=== PATIENT | female | born 1985 | race Caucasian/White ===

== ENCOUNTER 2018-12-05 12:19 | Day surgery (SDC) | payer OTHER, SELFPAY ==
--- NOTE | 2018-12-05 | PATH_ITS ---
[facility] Accession Number: [id number] . 01 Material submitted: . PART A: small bowel - TERMINAL ILEUM PART B: colon - CECUM, RIGHT COLON PART C: colon - TRANSVERSE COLON POLYP PART D: colon - LEFT COLON . 01 Clinical history: . A: HISTORY OF CROHN'S, RULE OUT ILEITIS . 02 Diagnosis: A. Terminal Ileum, Biopsy: Ileal mucosa with no diagnostic abnormality. Negative for active inflammation, granulomata, dysplasia or malignancy. . B. / D. Cecum, Right Colon, Left Colon, Biopsies: Colonic mucosa with no significant diagnostic abnormality. Negative for active inflammation, granulomata, dysplasia or malignancy. . C. Transverse Colon, Polyp: Tubular adenoma. . [facility] 12/07/2018 1053 Local . 02 Electronically signed: . Tk Gonzalez MD, PhD, Pathologist NPI- [id number] . 01 Gross description: . Part A: TERMINAL ILEUM: Received in formalin are 2 fragment(s) of mercedes, soft tissue measuring 0.1 x 0.1 x 0.1 cm to 0.2 x 0.2 x 0.2 cm submitted entirely in 1 cassette(s) Part B: CECUM, RIGHT COLON: Received in formalin are multiple fragment(s) of mercedes, soft tissue measuring 0.1 x 0.1 x 0.1 cm to 0.3 x 0.3 x 0.2 cm submitted entirely in 1 cassette(s) Part C: TRANSVERSE COLON POLYP: Received in formalin is 1 fragment(s) of mercedes, soft tissue measuring 0.3 x 0.2 x 0.2 cm submitted entirely in 1 cassette(s) Part D: LEFT COLON: Received in formalin are multiple fragment(s) of mercedes, soft tissue measuring 0.2 x 0.2 x 0.2 cm to 0.3 x 0.2 x 0.2 cm submitted entirely in 1 cassette(s) /[facility] 12/06/2018 [facility] . 02 Pathologist provided ICD-10: K50.00, D12.3 . 02 CPT . 733565, 554738, 737533, 843937 [facility]formed at: [facility] [address] [address], [place], [place] [id number] MD Jesus Manuel Lawrence MD Phone: [phone] Performed at: [id number] [place], [place] [id number] MD Cristine Waters MD Phone: [phone]
[2018-12-05 13:00] VITALS: BP 143/91; PULSE 100; RESP 18; TEMP 36.6; O2SAT 98
[2018-12-05 13:06] VITALS: BMI 42.5
--- NOTE | 2018-12-05 14:37 | PM.HP.1 ---
History of Present Illness History of Present Illness Chief complaint: [id number] Patient History Family & Social History Social History: household members spouse Tobacco & Substance use: Smoking Status Never smoker Meds Home Medications and Allergies Home Medications Medication Instructions Recorded Confirmed Type citalopram 40 mg tablet 40 mg PO DAILY #90 tab 08/13/18 11/16/18 History hydroxyzine HCl 25 mg tablet 25 mg PO QID PRN #20 tab 08/13/18 11/16/18 Rx levothyroxine 75 mcg tablet 75 mcg PO DAILY 08/13/18 11/16/18 History lisinopril 10 mg tablet 10 mg PO DAILY 08/13/18 11/16/18 History nifedipine 30 mg tablet,extended 30 mg PO DAILY #90 tab 08/13/18 11/16/18 History release 24 hr Allergies Allergy/AdvReac Type Severity Reaction Status Date / Time No Known Drug Allergies Allergy Verified 11/16/18 15:34 Review of Systems Review of Systems ROS Unobtainable: All systems reviewed & are unremarkable except as noted in HPI and below Exam Vital Signs (past 8 hours): - 12/05/18 13:00 Temperature 97.9 F Pulse Rate 100 H Respiratory Rate 18 Blood Pressure 143/91 H Pulse Oximetry 98 Oxygen Delivery Method Room Air Narrative Exam Narrative: Awake alert and oriented x3, no acute distress, heart regular rate rhythm, lungs clear, abdomen mildly tender in the right lower quadrant, no lower extremity edema Assessment & Plan Assessment & Plan narrative: History of Crohn's, diarrhea for colonoscopy
--- NOTE | 2018-12-05 15:47 | PM.OP.ENDO ---
Operative Date/Time/Diagnoses Date of procedure: 12/05/18 Procedure & Clinicians Study performed: Colonoscopy with biopsy Sedation: Monitored anesthesia care provided by the anesthesia service Indications: Unexplained diarrhea. History of Crohn's ileitis. Last colonoscopy was performed in 2014 Procedure Notes Procedure in detail: Prior to the procedure, history and physical was performed, and patient medications and allergies were reviewed. Preprocedure nursing history and assessment was reviewed. Patient identification and proposed procedure were verified by the physician and nurse in the procedure room. The physical status of the patient was reassessed after the procedure. After informed consent was obtained including risks, benefits, and alternatives, the scope was passed under direct vision. Throughout the procedure, the patient's blood pressure, pulse, and oxygen saturations were monitored continuously. The colonoscope was introduced through the anus and advanced to the cecum as identified by the appendiceal orifice and ileocecal valve. The patient tolerated the procedure well. Bowel prep was deemed adequate to detect polyps greater than 5 mm. TANYA and perianal examinations were unremarkable. Retroflexion in the rectum was unrevealing. A 3 mm sessile polyp was removed from the transverse colon with a Jumbo biopsy forceps and retrieved The entire examined colon was otherwise normal appearing. Biopsies taken from the cecum, ascending, and right transverse colon and placed in one jar. Biopsies taken from the left transverse, descending and sigmoid colon and placed in a 2nd jar. The terminal ileum was normal appearing. Biopsied. Impression: 3 mm transverse colon polyp removed Normal appearing terminal ileum, biopsied Normal appearing entire colon, biopsied Complications: other (EBL minimal. No complications) Post-procedure Plan for aftercare: Follow-up pathology results Repeat colonoscopy at a date to be determined based on pathology results Follow-up in GI clinic as previously scheduled Resume home medications Resume previous diet Discharge home with escort when discharge criteria met
[2018-12-05 15:55] VITALS: BP 119/81; PULSE 86; RESP 16; TEMP 37.6; O2SAT 100
[2018-12-05 16:30] VITALS: BP 130/70; PULSE 77; RESP 16; TEMP 36.7; O2SAT 99
--- NOTE | 2018-12-05 16:56 | SUR.PHASEII ---
pt by passed phase 1, stable phase 2 left hen ready and left in stable condition.
== END 2018-12-05 16:50 | disposition home or self-care (01) ==
PROVIDERS: Visit Provider Internal Medicine
PROC: 0DJD8ZZ Inspection of Lower Intestinal Tract, Via Natural or Artificial Opening Endoscopic (ICD-10-PCS; CPT 45378; principal; 2018-12-05 14:30)
DX: K50.00 Crohn's disease of small intestine without complications (principal); D12.3 Benign neoplasm of transverse colon
CPT/HCPCS: 45380; J2250; J2704; J3010

== ENCOUNTER → 2019-06-21 10:29 | Outpatient (CLI) | payer OTHER, SELFPAY ==
[2019-06-21 13:35] LABS: GTT (PREG) 1 Hour PP 50gm Dose 191 mg/dL (76-139)
[2019-06-21 14:05] LABS: TSH w/ Reflex to FT4 1.96 uIU/mL (0.47-4.68)
== END ==
PROVIDERS: Referring Provider Obstetrics & Gynecology; Visit Provider Obstetrics & Gynecology
DX: Z34.90 Encounter for supervision of normal pregnancy, unspecified, unspecified trimester (principal); E03.9 Hypothyroidism, unspecified
CPT/HCPCS: 36415; 82950; 84443

== ENCOUNTER → 2019-06-27 10:14 | Outpatient (CLI) | payer OTHER, SELFPAY ==
[2019-06-27 12:29] LABS: Glucose 1 Hour Gest 201 mg/dL (76-180)
[2019-06-27 12:30] LABS: Glucose Fasting Gestational 101 mg/dL (76-95)
[2019-06-27 13:38] LABS: Glucose Tol Interp,Gestational INTERPRETATION
[2019-06-27 13:40] LABS: Glucose 2 Hour Gest 170 mg/dL (76-155)
[2019-06-27 15:35] LABS: Glucose 3 Hour Gest 75 mg/dL (76-140)
== END ==
PROVIDERS: PCP Nurse Practitioner Family; Referring Provider Obstetrics & Gynecology; Visit Provider Obstetrics & Gynecology
DX: Z34.82 Encounter for supervision of other normal pregnancy, second trimester (principal); Z3A.22 22 weeks gestation of pregnancy
CPT/HCPCS: 36415; 82951; 82952

== ENCOUNTER → 2019-07-10 12:00 | Outpatient (CLI) | payer OTHER, SELFPAY ==
[2019-07-10 12:56] LABS: Add Manual Diff / Slide Review NO; Basophils Absolute Auto 0 /uL (0-100); Basophils Percent Auto 0.1 % (0-2); Eosinophils Absolute Auto 100 /uL (0-450); Hematocrit 34.3 % (36-46); Hemoglobin 11.6 g/dL (12.0-16.0); Lymphocytes Absolute Auto 1800 /uL (1100-4500); Mean Corpuscular HGB Conc 33.7 % (30-36); Mean Corpuscular Hemoglobin 27.5 PG (26-34); Mean Corpuscular Volume 81.8 fL (80-100); Monocytes Absolute Auto 600 /uL (0-900); Monocytes Percent Auto 4.3 % (3-14); Neutrophils Absolute Auto 10400 /uL (1500-7000); Neutrophils Percent Auto 80.6 % (50-75); Platelet Count 254 X10^3/uL (150-400); Red Cell Distribution Width 14.3 % (11.6-14.8)
[2019-07-10 13:28] LABS: Aspartate Aminotransferase 18 IU/L (14-36); BUN Creatinine Ratio 14.1 (6-22); Blood Urea Nitrogen 9 mg/dL (7-17); Estimated Glomerular Filt Rate > 60.0 mL/min (>60); Uric Acid 4.8 mg/dL (2.5-6.2)
[2019-07-10 13:42] LABS: Free T4, Direct Thyroxine 0.64 ng/dL (0.78-2.19)
== END ==
PROVIDERS: PCP Nurse Practitioner Family; Referring Provider Obstetrics & Gynecology; Visit Provider Obstetrics & Gynecology
DX: O99.280 Endocrine, nutritional and metabolic diseases complicating pregnancy, unspecified trimester (principal); O16.9 Unspecified maternal hypertension, unspecified trimester; E03.9 Hypothyroidism, unspecified
CPT/HCPCS: 36415; 84439; 84443; 84450; 84550; 85025

== ENCOUNTER → 2019-07-23 13:25 | Outpatient (CLI) | payer OTHER, SELFPAY ==
--- NOTE | 2019-07-23 14:59 | DIET.PN ---
INITIAL GESTATIONAL DIABETES ASSESSMENT ASSESS:? This is patients 3rd , 1st with GDM. Believes to have had undiagnosed GDM during first 2 pregnancies. She has a hx of HTN pre-. She admits to heavy soda consumption (up 6 per day) prior to diagnosis. She reports she does not follow a specific meal plan and will often not eat until dinner. She does not get regular exercise, especially since Covid-19. She has made impressive changes in her dietary habits and glucose monitoring over the last several days. ? KIARA:?Oct 30, 2019 ? WKS GESTATION:??26 wks ?LABS: A1c: 5.9 OGTT 50g : 191 (1 hr) Pt presents w/ new labs FB, 1 hr: 201, 2 hr: 170, 3 hr: 75 SMB-138 ? MEDS: na ? DIET:? B: cereal or nothing L: turk sand, chips, sandwich D: pro, starch, veg Sn: soda ? HT:? 68 ? PRE-PREG WT:? 288# ? PRE-PREG BMI:??43.8 ? CURRENT WT : 291#? TOTAL WT GAIN:? 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 Altered nutrition related lab values r/t gestational diabetes as evidenced by recent labs (OGGT). INTERVENTION 1. Discussed pathophysiology of gestational diabetes and impact of hormone and nutrition/diet on blood sugar control.? Discussed fed versus non-fed state.? 2. Recommended checking fasting, pre-meal and 1hr post prandial (3x/day).? Discussed goals for glycemic control (<95 FBG, <140 1-hr PP).? 3. Discussed the effect of carbohydrates/protein/fat on blood sugar control.? Stressed importance of consistent carbohydrate intake at each meal and provided instructions for recommended servings/portions of carbohydrates/protein per meal.? Provided pt with educational material. 4. Introduced carbohydrate counting and measuring carbohydrate content via servings sizes and reading nutrition labels.? Provided handouts.? 5. Discussed importance of meal timing and not going >3 hours between meals.? Provided sample meal schedule for pt.? Pt agreeable.?? 6. Discussed importance a pre-rosalva vitamin and including food sources of calcium, vitamin D, iron and folic acid for baby and mother?s nutrition support. 7. Discussed caffeine intake. Recommend no more than 200 mg/day (1 cup coffee). 8. Discussed rule of 15 for hypoglycemia. 9. Recommend patient purchase Urine Ketone strips and instructed on use and when to contact provider. 10.Recommended patient continue exercise as appropriate per PCP approval. 11.Patient may need medication management, will follow-up with plan of care at next visit after reviewing glucose results.? Pt will call this RD immediately if >20% BG values outside of normal ranges. MONITOR/EVAL: Follow up scheduled X 1 week. Good compliance expected. Review: carb sources, carb counting, portion size, meal timing, BG log, weight.
== END ==
PROVIDERS: PCP Nurse Practitioner Family; Referring Provider Obstetrics & Gynecology; Visit Provider Obstetrics & Gynecology
DX: O24.419 Gestational diabetes mellitus in pregnancy, unspecified control (principal); Z3A.26 26 weeks gestation of pregnancy; Z71.3 Dietary counseling and surveillance
CPT/HCPCS: G0108

== ENCOUNTER 2019-08-26 14:36 | Observation (INO) | payer OTHER, MEDICAID, SELFPAY ==
--- NOTE | 2019-08-26 14:45 | DI.US.S_ITS ---
PROCEDURE: US OB BIOPHYSICAL PROFILE INDICATIONS: BLEEDING; CERVICAL LENGTH + BPP OUTSIDE/PRIOR DATING DATA: Last menstrual period (LMP): Not available. LMP-based estimated date of delivery (KIARA): Not available . First dating scan (date and location): Not available . Estimated date of delivery (KIARA) from first dating scan: Reportedly 10/22/19 . TECHNIQUE: Real-time scanning was performed of the fetus for biophysical profile, with image documentation. Color and pulse Doppler interrogation was also performed of the umbilical artery near its insertion into the placenta. Endovaginal scanning: Not needed COMPARISON: None. FINDINGS: General: A single living intrauterine gestation is present. Presentation: Vertex. Placenta: Placental position is anterior , without previa. Amniotic fluid index: 15.1 cm, normal range is 5-24 cm. heart rate: 144 beats per minute. Maternal cervical canal: 3.9 cm long. Normal lower limit is 2.5 cm. Biophysical profile: Tone: 2 points. Movement: 2 points. Respiration: 2 points. Largest pocket of fluid: 2 points. IMPRESSION: Biophysical profile is 8 of 8 possible points. Normal amniotic fluid volume. heart rate 144 beats per minute, vertex presentation. Dictated by: Palmer Cortes M.D. on 08/26/2019 at 15:58 Approved by: Palmer Cortes M.D. on 08/26/2019 at 16:00
--- NOTE | 2019-08-26 17:01 | P.HPOB_ITS ---
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 She reports brown to pink vaginal bleeding on wiping 4 days ago that only happened once, and that she had no cramping or other symptoms at that time. The bleeding returned last night, heavier and more bright red, and continues on wiping today. Despite her crohns history, the bleeding is not associated with bowel movements, and she has not been having intercourse or engaged in other unusual activity. She reports good movement, no LOF, and no PIH complaints. She has an anterior placenta without previa. On speculum exam in clinic, the bleeding is coming from the cervical os but not the surface of the cervix, and is as characterized above. The patient was sent to L&D for further evaluation, and discussed with Dr. Bernal of [facility] at [facility], who agreed that she was appropriate for transfer to [place] for inpatient monitoring in proximity to a NICU. History of Present care: good care (Transfer of care @17 weeks) Dating criteria: based on 1st trimester US only Ultrasounds: normal 1st trimester US and normal mid trimester US Obstetrical complications: gestational diabetes Medical complications: cardiovascular (chronic hypertension, depression, obesity, crohns disease) Preadmission Labs Blood type: B (-) negative (rhogam on 08/13/2019) -: Antibody screen: negative, Cystic fibrosis screen: negative, GBS status: unknown, HBsAG: negative, HIV: negative and RPR/VDLR: negative -: Chlamydia screen: not detected and Gonorrhea screen: not detected -: Rubella: immune and Varicella: immune Sequential screen: within normal limits Urine: urine culture negative Prior (ies) History: 10/22/15: C section, female, 39.1, 9#8 oz 11/14/16: repeat C Section, 39+0, 10#1 oz, male, [facility] Evaluation Evaluation Baseline heart rate: 140 Variability: Marked (>25) monitor accelerations: Present monitor decelerations: Absent Category of Tracing: I Cervical dilation (cm): 0 Cervical effacement (%): 0 station: -3 Comments: BPP 10/10, Vertex, RUBIA 15.1. No contractions on toco. [facility] Medical History Abnormal Pap smear of cervix (Acute) Eczema of both hands (Acute) Migraine (Acute) Obesity (Acute) Surgical History H/O colonoscopy (Acute ~2012) H/O colonoscopy with polypectomy (Acute ~2018) H/O LEEP (Acute) History of carpal tunnel release (Acute ~10/18/18) History of primary section (Acute ~10/22/15) History of tonsillectomy and adenoidectomy (Acute ~2005) S/P ankle ligament repair (Acute ~2006) S/P repeat low transverse (Acute ~11/14/16) [place] teeth removed (Acute ~2005) Family History Mother Preeclampsia Graves disease Father Hypertension SVT (supraventricular tachycardia) Anxiety Grandfather Unknown whether patient has any health problems Grandmother Unknown whether patient has any health problems Grandfather Cancer Brain tumor Grandmother No problems noted. 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: No Smoking Status: Never smoker second hand exposure: No alcohol intake: never substance use type: does not use Meds Home Medications and Allergies Home Medications Medication Instructions Recorded Confirmed Type aspirin 81 mg tablet,delayed 81 mg PO DAILY 05/15/19 08/26/19 History release prenat.vits,maria e,ils-hepd-ifuea 1 tab PO DAILY 05/15/19 08/26/19 History sertraline 50 mg tablet 50 mg PO DAILY 05/15/19 08/26/19 History labetalol 300 mg tablet 300 mg PO BID #60 tab 05/29/19 08/26/19 Rx blood sugar diagnostic #120 each 07/17/19 08/26/19 Rx blood-glucose meter #1 each 07/17/19 08/26/19 Rx lancets #120 each 07/17/19 08/26/19 Rx levothyroxine 100 mcg capsule 100 mcg PO DAILY #30 cap 07/17/19 08/26/19 Rx insulin NPH isoph U-100 human 12 unit SUBCUT BEDTIME 08/26/19 08/26/19 History [Humulin N NPH Insulin KwikPen] insulin lispro 4 unit SUBCUT BID 08/26/19 08/26/19 History Allergies Allergy/AdvReac Type Severity Reaction Status Date / Time No Known Drug Allergies Allergy Verified 05/15/19 10:26 Review of Systems Constitutional Constitutional: Reports system reviewed and no additional complaints, except as documented Cardiovascular Cardiovascular: Reports system reviewed and no additional complaints, except as documented Respiratory Respiratory: Reports system reviewed and no additional complaints, except as documented Gastrointestinal Gastrointestinal: Reports system reviewed and no additional complaints, except as documented Genitourinary Genitourinary: Reports as per HPI Musculoskeletal Musculoskeletal: Reports system reviewed and no additional complaints, except as documented Neurologic Neurologic: Reports system reviewed and no additional complaints, except as documented Psychiatric Psychiatric: Reports system reviewed and no additional complaints, except as documented Hematologic/Lymphatic Hematologic/Lymphatic: Reports system reviewed and no additional complaints, except as documented Exam Vital Signs (past 8 hours): 129-145/69-72, HR 80s Const General: cooperative, healthy appearing and comfortable GI Inspection: large pannus and obesity Palpation: soft and No tender External Female Exam: normal external appearance Speculum Exam - Vagina: no lacerations, no lesions and vaginal bleeding Speculum Exam - Cervix: normal appearance of the cervix, closed and no lesions OB/External & Speculum: vaginal bleeding Extrem General: normal to inspection Assessment and Plan Assessment and Plan Assessment and Plan narrative: This patient is a 34yo @31+6 with cHTN, GDMA2, crohns dz, depression, and a history of two prior CS, admitted with concern for placental abruption. Maternal and status are stable, but the patient is having uterine bleeding concerning for placental abruption. Her cervix is long and closed and she is not indira, making labor less likely, and she is known not to have a placenta previa or low lying placenta. This was explained to the patient, who will be transferred to [facility] for both access to a NICU and to her [facility] providers. The above was explained to the patient, along with risks and benefits of transfer. All questions were answered. - 12mg IM betamethasone now - KB stain, CBC, T&S pending - NPO, 125ccs/hr LR - cEFM, toco until transfer
[2019-08-26 18:19] LABS: Add Manual Diff / Slide Review NO; Basophils Absolute Auto 100 /uL (0-100); Basophils Percent Auto 0.8 % (0-2); Eosinophils Absolute Auto 100 /uL (0-450); Eosinophils Percent Auto 0.7 % (2-4); Hematocrit 36.1 % (36-46); Lymphocytes Absolute Auto 2100 /uL (1100-4500); Lymphocytes Percent Auto 14.1 % (25-40); Mean Corpuscular HGB Conc 33.3 % (30-36); Mean Corpuscular Hemoglobin 27.5 PG (26-34); Mean Corpuscular Volume 82.6 fL (80-100); Monocytes Absolute Auto 500 /uL (0-900); Monocytes Percent Auto 3.6 % (3-14); Neutrophils Absolute Auto 11900 /uL (1500-7000); Neutrophils Percent Auto 80.8 % (50-75); Platelet Count 256 X10^3/uL (150-400); Red Blood Cell Count 4.37 X10^6/uL (4.0-5.2); Red Cell Distribution Width 14.8 % (11.6-14.8); White Blood Cell Count 14.7 X10^3/uL (4.5-11.0)
[2019-08-26] MEDS: LACTATED RINGERS 1,000 ML 125 ML IV (18:30)
[2019-08-26] MEDS: BETAMETHASONE 30 MG/5 ML MDV 12 MG IM (18:47)
== END 2019-08-26 19:40 | disposition home or self-care (01) ==
PROVIDERS: Admitting Provider Obstetrics & Gynecology; PCP Nurse Practitioner Family; Referring Provider Obstetrics & Gynecology; Visit Provider Obstetrics & Gynecology
DX: O46.93 Antepartum hemorrhage, unspecified, third trimester (principal); O10.913 Unspecified pre-existing hypertension complicating pregnancy, third trimester; Z3A.31 31 weeks gestation of pregnancy; O99.213 Obesity complicating pregnancy, third trimester; E66.01 Morbid (severe) obesity due to excess calories; O24.414 Gestational diabetes mellitus in pregnancy, insulin controlled; O99.343 Other mental disorders complicating pregnancy, third trimester; O99.613 Diseases of the digestive system complicating pregnancy, third trimester; F32.9 Major depressive disorder, single episode, unspecified; K50.90 Crohn's disease, unspecified, without complications
CPT/HCPCS: 59025; 59050; 76815; 76819; 85025; 85460; 86850; 86870; 86900; 86901; 96360; 96372; G0378; G0379; J0702

== ENCOUNTER 2019-09-05 10:03 | Outpatient (CLI) | payer OTHER, MEDICAID, SELFPAY ==
--- NOTE | 2019-09-05 10:22 | P.TNLD_ITS ---
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 Vital Signs Vital Signs: 124/71, HR 87 PFSH Medical History Abnormal Pap smear of cervix (Acute) Eczema of both hands (Acute) Migraine (Acute) Obesity (Acute) Surgical History H/O colonoscopy (Acute ~2012) H/O colonoscopy with polypectomy (Acute ~2018) H/O LEEP (Acute) History of carpal tunnel release (Acute ~10/18/18) History of primary section (Acute ~10/22/15) History of tonsillectomy and adenoidectomy (Acute ~2005) S/P ankle ligament repair (Acute ~2006) S/P repeat low transverse (Acute ~11/14/16) [place] teeth removed (Acute ~2005) Family History Mother Preeclampsia Graves disease Father Hypertension SVT (supraventricular tachycardia) Anxiety Grandfather Unknown whether patient has any health problems Grandmother Unknown whether patient has any health problems Grandfather Cancer Brain tumor Grandmother No problems noted. 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 OB Disposition: home
== END 2019-09-05 10:30 | disposition home or self-care (01) ==
LOC: LABOR 10:24 → OB 14:44
PROVIDERS: PCP Nurse Practitioner Family; Referring Provider Obstetrics & Gynecology; Visit Provider Obstetrics & Gynecology
DX: O24.419 Gestational diabetes mellitus in pregnancy, unspecified control (principal); O99.283 Endocrine, nutritional and metabolic diseases complicating pregnancy, third trimester; Z3A.33 33 weeks gestation of pregnancy
CPT/HCPCS: 59025; G0378; G0379

== ENCOUNTER 2019-09-09 10:40 | Outpatient (CLI) | payer OTHER, MEDICAID, SELFPAY ==
--- NOTE | 2019-09-11 08:29 | P.TNLD_ITS ---
Visit Information Visit Information Date of evaluation: 09/09/19 Primary OB Provider: Bree Viveros On-call OB Provider: Annamarie Bustos Reason for Evaluation: Yes non-stress test non-stress test reason: diabetes PFSH Medical History Abnormal Pap smear of cervix (Acute) Eczema of both hands (Acute) Migraine (Acute) Obesity (Acute) Surgical History H/O colonoscopy (Acute ~2012) H/O colonoscopy with polypectomy (Acute ~2018) H/O LEEP (Acute) History of carpal tunnel release (Acute ~10/18/18) History of primary section (Acute ~10/22/15) History of tonsillectomy and adenoidectomy (Acute ~2005) S/P ankle ligament repair (Acute ~2006) S/P repeat low transverse (Acute ~11/14/16) [place] teeth removed (Acute ~2005) Family History Mother Preeclampsia Graves disease Father Hypertension SVT (supraventricular tachycardia) Anxiety Grandfather Unknown whether patient has any health problems Grandmother Unknown whether patient has any health problems Grandfather Cancer Brain tumor Grandmother No problems noted. 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
== END 2019-09-09 11:28 | disposition home or self-care (01) ==
LOC: LABOR 11:28 → OB 15:38
PROVIDERS: PCP Nurse Practitioner Family; Referring Provider Obstetrics & Gynecology; Visit Provider Obstetrics & Gynecology
DX: O24.419 Gestational diabetes mellitus in pregnancy, unspecified control (principal); O10.913 Unspecified pre-existing hypertension complicating pregnancy, third trimester; O99.283 Endocrine, nutritional and metabolic diseases complicating pregnancy, third trimester; E07.9 Disorder of thyroid, unspecified; Z3A.33 33 weeks gestation of pregnancy
CPT/HCPCS: 59025; G0378; G0379

== ENCOUNTER 2019-09-12 11:13 | Observation (INO) | payer OTHER, MEDICAID, SELFPAY ==
--- NOTE | 2019-09-12 12:10 | DI.US.S_ITS ---
PROCEDURE: US OB BIOPHYSICAL PROFILE INDICATIONS: WELL BEING OUTSIDE/PRIOR DATING DATA: Last menstrual period (LMP): Unknown. LMP-based estimated date of delivery (KIARA): Unknown. First dating scan (date and location): Date unknown, location [facility]. Estimated date of delivery (KIARA) from first dating scan: 10/22/19. TECHNIQUE: Real-time scanning was performed of the fetus for biophysical profile, with image documentation. Color and pulse Doppler interrogation was also performed of the umbilical artery near its insertion into the placenta. COMPARISON: [facility], , US OB >= 14 WEEKS FETUS, 09/12/2019, 10:56. [facility], , OB BIOPHYSICAL PROFILE, 08/26/2019, 14:58. FINDINGS: General: A single living intrauterine gestation is present. Presentation: Vertex. Placenta: Placental position is anterior and fundal , without previa. Amniotic fluid index: 11.4 cm, normal range is 5-24 cm. heart rate: 150 beats per minute. Maternal cervical canal: 4.6 cm long. Normal lower limit is 2.5 cm. Estimated gestational age from initial scan: 34 weeks 2 days . Biophysical profile: Tone: 2 points. Movement: 2 points. Respiration: 2 points. Largest pocket of fluid: 2 points. IMPRESSION: Living 3rd trimester intrauterine . Normal ultrasound biophysical profile measuring 09/13. Dictated by: Vivek Esteban M.D. on 09/12/2019 at 13:20 Approved by: Vivek Esteban M.D. on 09/12/2019 at 13:25
[2019-09-12] MEDS: LACTATED RINGERS 1,000 ML 1000 ML IV (12:30)
--- NOTE | 2019-09-12 13:42 | PM.OBHP.1 ---
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 She reports that she felt a little bit of movement yesterday and a little bit this morning, but significantly decreased from her baseline. She denies abdominal pain, vaginal bleeding, contractions, LOF, PIH symptoms, or any other complaints. She has been followed by MFM at [facility] throughout this . She had been on ASA81 prior to the abruption event for PIH prophylaxis. She has signed consents here and at [facility] for a BLTL. Evaluation Evaluation Baseline heart rate: 160 Variability: Average (6-10) monitor accelerations: Absent monitor decelerations: Absent Laboratory results: Pending [facility] Medical History Abnormal Pap smear of cervix (Acute) Eczema of both hands (Acute) Migraine (Acute) Obesity (Acute) Surgical History H/O colonoscopy (Acute ~2012) H/O colonoscopy with polypectomy (Acute ~2018) H/O LEEP (Acute) History of carpal tunnel release (Acute ~10/18/18) History of primary section (Acute ~10/22/15) History of tonsillectomy and adenoidectomy (Acute ~2005) S/P ankle ligament repair (Acute ~2006) S/P repeat low transverse (Acute ~11/14/16) [place] teeth removed (Acute ~2005) Family History Mother Preeclampsia Graves disease Father Hypertension SVT (supraventricular tachycardia) Anxiety Grandfather Unknown whether patient has any health problems Grandmother Unknown whether patient has any health problems Grandfather Cancer Brain tumor Grandmother No problems noted. 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 needs: No Smoking Status: Never smoker second hand exposure: No alcohol intake: never substance use type: does not use Meds Home Medications and Allergies Home Medications Medication Instructions Recorded Confirmed Type aspirin 81 mg tablet,delayed 81 mg PO DAILY 05/15/19 08/26/19 History release prenat.vits,maria e,yaj-ykbo-tmlrb 1 tab PO DAILY 05/15/19 08/26/19 History sertraline 50 mg tablet 50 mg PO DAILY 05/15/19 08/26/19 History labetalol 300 mg tablet 300 mg PO BID #60 tab 05/29/19 08/26/19 Rx blood sugar diagnostic #120 each 07/17/19 08/26/19 Rx blood-glucose meter #1 each 07/17/19 08/26/19 Rx lancets #120 each 07/17/19 08/26/19 Rx levothyroxine 100 mcg capsule 100 mcg PO DAILY #30 cap 07/17/19 08/26/19 Rx insulin NPH isoph U-100 human 12 unit SUBCUT BEDTIME 08/26/19 08/26/19 History [Humulin N NPH Insulin KwikPen] insulin lispro 4 unit SUBCUT BID 08/26/19 08/26/19 History Allergies Allergy/AdvReac Type Severity Reaction Status Date / Time No Known Drug Allergies Allergy Verified 05/15/19 10:26 Review of Systems Constitutional Constitutional: Reports system reviewed and no additional complaints, except as documented Cardiovascular Cardiovascular: Reports system reviewed and no additional complaints, except as documented Respiratory Respiratory: Reports system reviewed and no additional complaints, except as documented Gastrointestinal Gastrointestinal: Reports as per HPI Genitourinary Genitourinary: Reports as per HPI Musculoskeletal Musculoskeletal: Reports system reviewed and no additional complaints, except as documented Neurologic Neurologic: Reports system reviewed and no additional complaints, except as documented Hematologic/Lymphatic Hematologic/Lymphatic: Reports system reviewed and no additional complaints, except as documented Exam Vital Signs (past 8 hours): 137/86, HR 89 Assessment and Plan Assessment and Plan Assessment and Plan narrative: This patient is a 34yo @34+2 with a history of placental abruption, cHTN, GDMA2, and 2x prior CS, admitted with decreased movement, a non-reactive NST, and concern for worsening placental abruption on ultrasound. The patient is asymptomatic with an 8/10 BPP, but given her clinical history, her prolonged monitoring is best performed at a site with a NICU. This was discussed with MFM at [facility], who are in agreement with this plan. Risks of worsening in route vs. benefits of NICU access were discussed with the patient, who vocalized understanding. - NPO - s/p IV fluid bolus, continue at 125ccs/hr - CBC and T&S pending - Formal BPP report pending Discussed with accepting transfer physician, Dr. Nascimento.
[2019-09-12 13:50] LABS: Add Manual Diff / Slide Review NO; Basophils Absolute Auto 100 /uL (0-100); Basophils Percent Auto 0.6 % (0-2); Eosinophils Absolute Auto 100 /uL (0-450); Eosinophils Percent Auto 0.8 % (2-4); Hematocrit 34.7 % (36-46); Hemoglobin 11.4 g/dL (12.0-16.0); Lymphocytes Absolute Auto 1700 /uL (1100-4500); Lymphocytes Percent Auto 12.8 % (25-40); Mean Corpuscular HGB Conc 32.8 % (30-36); Mean Corpuscular Hemoglobin 27.1 PG (26-34); Mean Corpuscular Volume 82.7 fL (80-100); Monocytes Absolute Auto 500 /uL (0-900); Monocytes Percent Auto 3.8 % (3-14); Neutrophils Absolute Auto 10700 /uL (1500-7000); Platelet Count 228 X10^3/uL (150-400); Red Blood Cell Count 4.19 X10^6/uL (4.0-5.2); Red Cell Distribution Width 14.9 % (11.6-14.8)
[2019-09-12] MEDS: LACTATED RINGERS 1,000 ML 150 ML IV (14:24)
== END 2019-09-12 15:40 | disposition home or self-care (01) ==
PROVIDERS: Admitting Provider Obstetrics & Gynecology; PCP Nurse Practitioner Family; Referring Provider Obstetrics & Gynecology; Visit Provider Obstetrics & Gynecology
DX: O45.93 Premature separation of placenta, unspecified, third trimester (principal); O36.8130 Decreased fetal movements, third trimester, not applicable or unspecified; Z3A.34 34 weeks gestation of pregnancy; O10.913 Unspecified pre-existing hypertension complicating pregnancy, third trimester; O24.414 Gestational diabetes mellitus in pregnancy, insulin controlled; E66.01 Morbid (severe) obesity due to excess calories; F32.9 Major depressive disorder, single episode, unspecified; O99.613 Diseases of the digestive system complicating pregnancy, third trimester
CPT/HCPCS: 36415; 59050; 76819; 85025; 86850; 86870; 86900; 86901; 96360; G0378; G0379

== ENCOUNTER 2019-09-16 11:04 | Outpatient (CLI) | payer OTHER, MEDICAID, SELFPAY ==
--- NOTE | 2019-09-16 11:38 | PM.OBTRLD ---
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 Patient was discharged from [facility] last night after prolonged observation with reassuring status. Patient reports was told she almost has HELLP or something, per records mild elevation in LFTs though not double upper limit of normal. PIH labs repeated today. Vital Signs Vital Signs: 127/66, HR 88 PFSH Medical History Abnormal Pap smear of cervix (Acute) Eczema of both hands (Acute) Migraine (Acute) Obesity (Acute) Surgical History H/O colonoscopy (Acute ~2012) H/O colonoscopy with polypectomy (Acute ~2018) H/O LEEP (Acute) History of carpal tunnel release (Acute ~10/18/18) History of primary section (Acute ~10/22/15) History of tonsillectomy and adenoidectomy (Acute ~2005) S/P ankle ligament repair (Acute ~2006) S/P repeat low transverse (Acute ~11/14/16) [place] teeth removed (Acute ~2005) Family History Mother Preeclampsia Graves disease Father Hypertension SVT (supraventricular tachycardia) Anxiety Grandfather Unknown whether patient has any health problems Grandmother Unknown whether patient has any health problems Grandfather Cancer Brain tumor Grandmother No problems noted. 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 Planned for CS at 37 weeks. OB Disposition: home
[2019-09-16 13:18] LABS: Alanine Aminotransferase 59 IU/L (<35); Albumin 3.7 g/dL (3.5-5.0); Albumin Globulin Ratio 1.1 (1.0-2.8); Alkaline Phosphatase 142 U/L (38-126); Aspartate Aminotransferase 39 IU/L (14-36); BUN Creatinine Ratio 19.7 (6-22); Bilirubin Total 0.4 mg/dL (0.2-1.3); Blood Urea Nitrogen 12 mg/dL (7-17); Calcium 9.6 mg/dL (8.4-10.2); Carbon Dioxide 22 mmol/L (22-32); Chloride 107 mmol/L (98-107); Estimated Glomerular Filt Rate > 60.0 mL/min (>60); Globulin 3.3 g/dL (1.7-4.1); Glucose 87 mg/dL (70-100); HEMOLYSIS 16 (0-50); Lactate Dehydrogenase 295 U/L (313-618); Potassium 4.5 mmol/L (3.4-5.1); Sodium 136 mmol/L (137-145); Uric Acid 4.5 mg/dL (2.5-6.2)
[2019-09-16 13:22] LABS: Add Manual Diff / Slide Review NO; Basophils Absolute Auto 0 /uL (0-100); Basophils Percent Auto 0.3 % (0-2); Eosinophils Absolute Auto 100 /uL (0-450); Eosinophils Percent Auto 0.7 % (2-4); Hematocrit 35.9 % (36-46); Hemoglobin 12.1 g/dL (12.0-16.0); Lymphocytes Absolute Auto 1600 /uL (1100-4500); Lymphocytes Percent Auto 10.8 % (25-40); Mean Corpuscular HGB Conc 33.7 % (30-36); Mean Corpuscular Hemoglobin 27.7 PG (26-34); Monocytes Absolute Auto 600 /uL (0-900); Monocytes Percent Auto 4.2 % (3-14); Neutrophils Absolute Auto 12100 /uL (1500-7000); Platelet Count 255 X10^3/uL (150-400); Red Blood Cell Count 4.38 X10^6/uL (4.0-5.2); Red Cell Distribution Width 14.9 % (11.6-14.8); White Blood Cell Count 14.4 X10^3/uL (4.5-11.0)
== END 2019-09-16 12:55 | disposition home or self-care (01) ==
LOC: LABOR 12:34 → OB 09-17 12:25
PROVIDERS: PCP Nurse Practitioner Family; Referring Provider Obstetrics & Gynecology; Visit Provider Obstetrics & Gynecology
DX: O24.414 Gestational diabetes mellitus in pregnancy, insulin controlled (principal); O10.913 Unspecified pre-existing hypertension complicating pregnancy, third trimester; O99.283 Endocrine, nutritional and metabolic diseases complicating pregnancy, third trimester; E07.9 Disorder of thyroid, unspecified; Z3A.34 34 weeks gestation of pregnancy
CPT/HCPCS: 59025; 59050; 80053; 83615; 84550; 85025; G0378; G0379

== ENCOUNTER 2019-09-19 11:22 | Observation (INO) | payer OTHER, MEDICAID, SELFPAY ==
--- NOTE | 2019-09-19 12:18 | P.TNLD_ITS ---
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 Patient reports mild headache that has been present since discharge from [place] is unchanged, no visual changes, no right upper quadrant pain, no other complaints obstetrical or otherwise today. [facility] Medical History Abnormal Pap smear of cervix (Acute) Eczema of both hands (Acute) Migraine (Acute) Obesity (Acute) Surgical History H/O colonoscopy (Acute ~2012) H/O colonoscopy with polypectomy (Acute ~2018) H/O LEEP (Acute) History of carpal tunnel release (Acute ~10/18/18) History of primary section (Acute ~10/22/15) History of tonsillectomy and adenoidectomy (Acute ~2005) S/P ankle ligament repair (Acute ~2006) S/P repeat low transverse (Acute ~11/14/16) [place] teeth removed (Acute ~2005) Family History Mother Preeclampsia Graves disease Father Hypertension SVT (supraventricular tachycardia) Anxiety Grandfather Unknown whether patient has any health problems Grandmother Unknown whether patient has any health problems Grandfather Cancer Brain tumor Grandmother No problems noted. 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 Smoking Status: Never smoker second hand exposure: No alcohol intake: never substance use type: does not use Review of Systems Constitutional Constitutional: Reports system reviewed and no additional complaints, except as documented Exam Vital Signs (past 8 hours): 134/63, hr 91 Const General: cooperative, healthy appearing and comfortable Objective Labs Result Diagrams: 09/19/19 12:31 09/19/19 12:31 Evaluation Evaluation Baseline heart rate: 145 Variability: Moderate (11-25) monitor accelerations: Present monitor decelerations: Absent Category of Tracing: Reactive (Category 1) Comments: PIH labs stable. Diagnosis, Plan/Disposition Plan/Disposition Plan: Home with routine precautions and scheduled follow-up. OB Disposition: home
[2019-09-19 12:42] LABS: Add Manual Diff / Slide Review NO; Basophils Absolute Auto 100 /uL (0-100); Basophils Percent Auto 0.6 % (0-2); Eosinophils Absolute Auto 100 /uL (0-450); Eosinophils Percent Auto 0.6 % (2-4); Hematocrit 32.7 % (36-46); Hemoglobin 11.1 g/dL (12.0-16.0); Lymphocytes Absolute Auto 900 /uL (1100-4500); Lymphocytes Percent Auto 9.7 % (25-40); Mean Corpuscular HGB Conc 34.1 % (30-36); Mean Corpuscular Hemoglobin 28.1 PG (26-34); Mean Corpuscular Volume 82.6 fL (80-100); Monocytes Absolute Auto 400 /uL (0-900); Monocytes Percent Auto 4.5 % (3-14); Neutrophils Absolute Auto 7600 /uL (1500-7000); Neutrophils Percent Auto 84.6 % (50-75); Platelet Count 196 X10^3/uL (150-400); Red Blood Cell Count 3.96 X10^6/uL (4.0-5.2); Red Cell Distribution Width 14.7 % (11.6-14.8)
[2019-09-19 12:54] LABS: Alanine Aminotransferase 63 IU/L (<35); Albumin 3.4 g/dL (3.5-5.0); Albumin Globulin Ratio 1.1 (1.0-2.8); Alkaline Phosphatase 135 U/L (38-126); Aspartate Aminotransferase 36 IU/L (14-36); Bilirubin Total 0.3 mg/dL (0.2-1.3); Blood Urea Nitrogen 13 mg/dL (7-17); Calcium 8.8 mg/dL (8.4-10.2); Carbon Dioxide 22 mmol/L (22-32); Chloride 107 mmol/L (98-107); Estimated Glomerular Filt Rate > 60.0 mL/min (>60); Glucose 84 mg/dL (70-100); HEMOLYSIS < 15 (0-50); Potassium 3.9 mmol/L (3.4-5.1); Sodium 136 mmol/L (137-145); Total Protein 6.4 g/dL (6.3-8.2)
[2019-09-19 12:55] LABS: Lactate Dehydrogenase 295 U/L (313-618); Uric Acid 4.8 mg/dL (2.5-6.2)
== END 2019-09-19 13:40 | disposition home or self-care (01) ==
PROVIDERS: Admitting Provider Obstetrics & Gynecology; PCP Nurse Practitioner Family; Referring Provider Obstetrics & Gynecology; Visit Provider Obstetrics & Gynecology
DX: O24.414 Gestational diabetes mellitus in pregnancy, insulin controlled (principal); O10.913 Unspecified pre-existing hypertension complicating pregnancy, third trimester; Z3A.34 34 weeks gestation of pregnancy
CPT/HCPCS: 36415; 59025; 59050; 80053; 83615; 84550; 85025; G0378; G0379

== ENCOUNTER 2019-09-23 09:58 | Outpatient (CLI) | payer OTHER, MEDICAID, SELFPAY ==
--- NOTE | 2019-09-23 10:09 | P.TNLD_ITS ---
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 Patient reports mild headache that has been present since discharge from [facility] is unchanged, no visual changes, no right upper quadrant pain, no other complaints obstetrical or otherwise today. Vital Signs Vital Signs: 133/68, HR 86 PFSH Medical History Abnormal Pap smear of cervix (Acute) Eczema of both hands (Acute) Migraine (Acute) Obesity (Acute) Surgical History H/O colonoscopy (Acute ~2012) H/O colonoscopy with polypectomy (Acute ~2018) H/O LEEP (Acute) History of carpal tunnel release (Acute ~10/18/18) History of primary section (Acute ~10/22/15) History of tonsillectomy and adenoidectomy (Acute ~2005) S/P ankle ligament repair (Acute ~2006) S/P repeat low transverse (Acute ~11/14/16) [place] teeth removed (Acute ~2005) Family History Mother Preeclampsia Graves disease Father Hypertension SVT (supraventricular tachycardia) Anxiety Grandfather Unknown whether patient has any health problems Grandmother Unknown whether patient has any health problems Grandfather Cancer Brain tumor Grandmother No problems noted. 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 As she is stable today with only one elevated LFT, we discussed moving her section up to tomorrow. We discussed admission for monitoring and serial labs overnight, and the patient declines as she is otherwise feeling well. Precautions for return were stressed. OB Disposition: home
[2019-09-23 11:02] LABS: Add Manual Diff / Slide Review NO; Basophils Absolute Auto 100 /uL (0-100); Basophils Percent Auto 0.9 % (0-2); Eosinophils Absolute Auto 100 /uL (0-450); Eosinophils Percent Auto 0.9 % (2-4); Hematocrit 35.6 % (36-46); Hemoglobin 11.7 g/dL (12.0-16.0); Lymphocytes Absolute Auto 1800 /uL (1100-4500); Mean Corpuscular HGB Conc 32.8 % (30-36); Mean Corpuscular Hemoglobin 27.2 PG (26-34); Mean Corpuscular Volume 82.8 fL (80-100); Monocytes Absolute Auto 400 /uL (0-900); Monocytes Percent Auto 3.1 % (3-14); Neutrophils Absolute Auto 9500 /uL (1500-7000); Neutrophils Percent Auto 80.1 % (50-75); Platelet Count 242 X10^3/uL (150-400); Red Cell Distribution Width 15.3 % (11.6-14.8); White Blood Cell Count 11.9 X10^3/uL (4.5-11.0)
[2019-09-23 11:32] LABS: Aspartate Aminotransferase 48 IU/L (14-36); Blood Urea Nitrogen 12 mg/dL (7-17); Estimated Glomerular Filt Rate > 60.0 mL/min (>60); Uric Acid 4.4 mg/dL (2.5-6.2)
[2019-09-23 12:00] LABS: Alanine Aminotransferase 92 IU/L (<35); Albumin 3.5 g/dL (3.5-5.0); Albumin Globulin Ratio 1.1 (1.0-2.8); Alkaline Phosphatase 151 U/L (38-126); Aspartate Aminotransferase 50 IU/L (14-36); BUN Creatinine Ratio 19.7 (6-22); Bilirubin Total 0.4 mg/dL (0.2-1.3); Blood Urea Nitrogen 12 mg/dL (7-17); Calcium 8.9 mg/dL (8.4-10.2); Carbon Dioxide 21 mmol/L (22-32); Chloride 108 mmol/L (98-107); Estimated Glomerular Filt Rate > 60.0 mL/min (>60); Globulin 3.3 g/dL (1.7-4.1); Glucose 104 mg/dL (70-100); HEMOLYSIS < 15 (0-50); Sodium 136 mmol/L (137-145); Total Protein 6.8 g/dL (6.3-8.2)
== END 2019-09-23 11:40 | disposition home or self-care (01) ==
LOC: LABOR 10:02 → OB 09-25 12:11
PROVIDERS: PCP Nurse Practitioner Family; Referring Provider Obstetrics & Gynecology; Visit Provider Obstetrics & Gynecology
DX: O14.03 Mild to moderate pre-eclampsia, third trimester (principal); Z3A.35 35 weeks gestation of pregnancy; Z86.32 Personal history of gestational diabetes
CPT/HCPCS: 59025; 80053; 84450; 84550; 85025; G0378; G0379

== ENCOUNTER 2019-09-24 08:01 | Inpatient (IN) | payer OTHER, MEDICAID, SELFPAY ==
[2019-09-24] VITALS (7 sets, daily range): BP systolic 120–143; BP diastolic 63–96; PULSE 64–80; RESP 15–16; TEMP 36.6–37.3; O2SAT 95–98
--- NOTE | 2019-09-24 | PATH_ITS ---
[facility] Accession Number: [id number] . 01 Material submitted: . fallopian tube - BILATERAL FALLOPIAN TUBES . 01 Clinical history: . IP . 02 Diagnosis: Bilateral Fallopian Tubes, Tubal Ligation: Complete cross-section of segments of fallopian tube x2. MRV 09/26/2019 1038 Local . 02 Electronically signed: . Ivania Lane MD, Pathologist NPI- [id number] . 01 Gross description: . Received in formalin, labeled with the patient's name, MRN and bilateral fallopian tubes, are two mercedes-pink segments of fallopian tube measuring 0.7 cm in length by 0.5 cm in diameter and 1.0 cm in length by 0.6 cm in diameter. No fimbriae are attached. The entire specimen is submitted as follows: . A1: smaller segment of fallopian tube, bisected. A2: longer segment of fallopian tube, trisected. ([place] [id number] /MRV 09/25/2019 1236 Local . 02 Pathologist provided ICD-10: Z3A.36, O14.90, Z32.2, Z98.891 . 02 CPT . 916320 Performed at: 01 [facility] [address], [place], [place] [id number] MD Jesus Manuel Lawrence MD Phone: [phone] Performed at: 02 [facility] [address] [place], [place] [id number] MD Cristine Waters MD Phone: [phone]
--- NOTE | 2019-09-24 08:16 | P.HPOB_ITS ---
OB HPI Date/Time Date of admission: 09/24/19 Date Patient Seen: 09/24/19 Time Patient Seen: 07:45 History of Present Condition Chief complaint: IP : 3 Para: 2 Estimated Date of Delivery: 10/22/19 Estimated Gestational Age (weeks): 36 Narrative: Damaris Daigle is a 34 year old @36+0, admitted with signs of worsening PIH in the setting of a suspected chronic abruption. She has a complex history as below. She reports feeling well today with no return of the headaches, no visual changes, no chest pain, no RUQ pain, no contractions, no vaginal bleeding, good movement, and no other complaints, but has increasingly elevated LFTs though normal platelets and no signs of hemolysis. The patient has a history of cHTN on 300mg labetalol BID, with superimposed preeeclampsia without severe features diagnosed based on worsening proteinuria during a recent admission at [facility]. She has been managed for GDMA2 with insulin, 12u NPH at bedtime, 8u of lispro with breakfast and lunch, and 6u of lispro with dinner. She has a history of two prior sections, desires a tubal ligation, and has a low lying anterior placenta though no previa. She transferred care from the [facility] at 18 weeks gestation, and was seen by MFM through [facility] starting in the 1st trimester. She has been followed here with twice weekly NSTs, weekly BPPs, and weekly and then twice weekly PIH labs since her discharge after diagnosis of suspected abruption. The patient was transferred to [facility] during her 34th week due to a cat 2 EFM and subjectively decreased movement, with concern for intraplacental hemorrhage on ultrasound, and was discharged with the above testing to continue and planned delivery at 37 weeks. Her history is otherwise significant for LEEP, crohn's disease with history of endoscopies but no other surgeries, and hypothyroidism managed with levothyroxine. Her most recent growth ultrasound was on 08/25, stated as 39% and symmetric but with no actual EFW. She was betamethasone complete on 08/27. Indications Operative indications ( section): preeclampsia History of Present care: good care Dating criteria: LMP confirmed by 2nd trimester US Ultrasounds: normal 1st trimester US and normal mid trimester US (06/12/2019, [facility]) Obstetrical complications: gestational diabetes, preeclampsia and other (suspected placental abruption) Preadmission Labs Blood type: B (-) negative -: Antibody screen: negative (rhogam on 08/13/2019), GBS status: positive (Positive at [facility]), HBsAG: negative, HIV: negative and RPR/VDLR: negative -: Chlamydia screen: not detected and Gonorrhea screen: not detected -: Rubella: immune and Varicella: immune PAP: Normal (06/2018) Cell-free DNA: negative for signs of aneuploidy 1 hr GTT: 191 3 hr GTT: 1 hr (201), 2 hr (170) and 3 hr (75) Fasting blood glucose: 101 Prior (ies) History: G1: 10/22/2015, pCS for arrest of dilation, 39.1, 9#8, F, HTN G2: 11/14/2016, rCS, 10#1, M, reports was uncomplicated Evaluation Evaluation Baseline heart rate: 135 Variability: Moderate (11-25) monitor accelerations: Present monitor decelerations: Absent Contraction Frequency (minutes): 7 Category of Tracing: Reactive PFSH Medical History Abnormal Pap smear of cervix (Acute) Eczema of both hands (Acute) Migraine (Acute) Obesity (Acute) Surgical History H/O colonoscopy (Acute ~2012) H/O colonoscopy with polypectomy (Acute ~2018) H/O LEEP (Acute) History of carpal tunnel release (Acute ~10/18/18) History of primary section (Acute ~10/22/15) History of tonsillectomy and adenoidectomy (Acute ~2005) S/P ankle ligament repair (Acute ~2006) S/P repeat low transverse (Acute ~11/14/16) [place] teeth removed (Acute ~2005) Family History Mother Preeclampsia Graves disease Father Hypertension SVT (supraventricular tachycardia) Anxiety Grandfather Unknown whether patient has any health problems Grandmother Unknown whether patient has any health problems Grandfather Cancer Brain tumor Grandmother No problems noted. 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 Smoking Status: Never smoker second hand exposure: No alcohol intake: never substance use type: does not use Meds Home Medications and Allergies Home Medications Medication Instructions Recorded Confirmed Type aspirin 81 mg tablet,delayed 81 mg PO DAILY 05/15/19 09/24/19 History release prenat.vits,maria e,pak-wyfm-kjprb 1 tab PO DAILY 05/15/19 09/24/19 History sertraline 50 mg tablet 50 mg PO DAILY 05/15/19 09/24/19 History labetalol 300 mg tablet 300 mg PO BID #60 tab 05/29/19 09/24/19 Rx blood sugar diagnostic #120 each 07/17/19 09/24/19 Rx blood-glucose meter #1 each 07/17/19 09/24/19 Rx lancets #120 each 07/17/19 09/24/19 Rx levothyroxine 100 mcg capsule 100 mcg PO DAILY #30 cap 07/17/19 09/24/19 Rx insulin NPH isoph U-100 human 12 unit SUBCUT BEDTIME 08/26/19 09/24/19 History [Humulin N NPH Insulin KwikPen] insulin lispro 4 unit SUBCUT BID 08/26/19 09/24/19 History Allergies Allergy/AdvReac Type Severity Reaction Status Date / Time No Known Drug Allergies Allergy Verified 05/15/19 10:26 Review of Systems Constitutional Constitutional: Reports system reviewed and no additional complaints, except as documented Cardiovascular Cardiovascular: Reports system reviewed and no additional complaints, except as documented Respiratory Respiratory: Reports system reviewed and no additional complaints, except as documented Gastrointestinal Gastrointestinal: Reports system reviewed and no additional complaints, except as documented Genitourinary Genitourinary: Reports system reviewed and no additional complaints, except as documented Musculoskeletal Musculoskeletal: Reports system reviewed and no additional complaints, except as documented Neurologic Neurologic: Reports system reviewed and no additional complaints, except as documented Hematologic/Lymphatic Hematologic/Lymphatic: Reports system reviewed and no additional complaints, except as documented Exam Const General: cooperative, healthy appearing and comfortable Other: mildly increased facial swelling Resp Effort & Inspection: normal respiratory effort Auscultation: clear to auscultation bilaterally Cardio Rate: regular rate Rhythm: regular rhythm GI Palpation: soft and No tender Extrem Other: 2+ LE edema, 1+ UE edema Objective Labs Result Diagrams: 09/24/19 08:25 09/24/19 08:25 Assessment and Plan Assessment and Plan Assessment and Plan narrative: This patient presents for third repeat section and BLTL at 36 weeks gestation, in the setting of a complex as above. The patient meets diagnostic criteria for preeclampsia without severe features superimposed on chronic hypertension, and though she does not meet di agnostic criteria for HELLP syndrome, she has rising liver function tests now 2x the upper limit of normal. The patient is currently scheduled for a repeat CS and BLTL in just over 1 week, but her overall clinical presentation is concerning for PIH that is on track to acutely worsen and requre emergent delivery prior to her scheduled section. I discussed this with the patient, and we discussed that with her low lying anterior placenta and two prior CS, she is at higher risk for hemorrhage requiring blood transfusion or hysterectomy, which would be complicated significantly by the coagulopathy associated with fulminant HELLP. We discussed that this could be dangerous to her life. We discussed typical custodial outcomes for a at 36 weeks being good, although this baby would likely require transfer to a NICU and that there are risks associated with prematurity. In weighing the risks of delivery now vs. the benefits, we elected to proceed with scheduled, planned c esarean section, at a time when the maximum amount of assistance is available. We discussed the risks of damage to bowel and bladder, the risk of infection, and the risks of bleeding as above. Given the complications, the patient desires to proceed with the BLTL despite her 's prematurity. All questions were answered, and informed consent was signed. - PIH labs, CBC, type and cross, coags - NPO - cEFM, toco
[2019-09-24 09:05] LABS: COVID19 -Nasal RAPID Negative (Negative)
[2019-09-24 09:34] LABS: Add Manual Diff / Slide Review NO; Basophils Absolute Auto 100 /uL (0-100); Basophils Percent Auto 0.7 % (0-2); Eosinophils Absolute Auto 100 /uL (0-450); Hematocrit 34.8 % (36-46); Hemoglobin 11.5 g/dL (12.0-16.0); Lymphocytes Absolute Auto 2000 /uL (1100-4500); Lymphocytes Percent Auto 15.4 % (25-40); Mean Corpuscular Hemoglobin 27.1 PG (26-34); Mean Corpuscular Volume 82.1 fL (80-100); Monocytes Absolute Auto 500 /uL (0-900); Monocytes Percent Auto 3.5 % (3-14); Neutrophils Absolute Auto 10100 /uL (1500-7000); Neutrophils Percent Auto 79.4 % (50-75); Platelet Count 244 X10^3/uL (150-400); Red Blood Cell Count 4.24 X10^6/uL (4.0-5.2); Red Cell Distribution Width 15.3 % (11.6-14.8); White Blood Cell Count 12.7 X10^3/uL (4.5-11.0)
[2019-09-24 09:36] LABS: INR 1.1 (0.9-1.3); Prothrombin Time 12.1 SECONDS (10.1-12.7)
[2019-09-24 09:39] LABS: PTT Partial Thromboplastin Tim 27 SECONDS (26.4-36.2)
[2019-09-24 09:40] LABS: Alanine Aminotransferase 100 IU/L (<35); Albumin 3.5 g/dL (3.5-5.0); Albumin Globulin Ratio 1.1 (1.0-2.8); Alkaline Phosphatase 163 U/L (38-126); Aspartate Aminotransferase 58 IU/L (14-36); Bilirubin Total 0.4 mg/dL (0.2-1.3); Blood Urea Nitrogen 13 mg/dL (7-17); Calcium 8.8 mg/dL (8.4-10.2); Carbon Dioxide 20 mmol/L (22-32); Chloride 109 mmol/L (98-107); Estimated Glomerular Filt Rate > 60.0 mL/min (>60); Globulin 3.3 g/dL (1.7-4.1); Glucose 97 mg/dL (70-100); HEMOLYSIS 19 (0-50); Lactate Dehydrogenase 439 U/L (313-618); Sodium 136 mmol/L (137-145); Total Protein 6.8 g/dL (6.3-8.2); Uric Acid 4.9 mg/dL (2.5-6.2)
[2019-09-24 09:51] LABS: Fibrinogen 510 mg/dL (211-428)
[2019-09-24 10:20] LABS: Creatinine Urine Random 125.3 mg/dL; Protein (Total) Urine Random 13 mg/dL (0-12)
[2019-09-24] MEDS: LACTATED RINGERS 1,000 ML 100 ML IV ×3 (14:37→16:04)
[2019-09-24] MEDS: CEFAZOLIN 2 GM/100 ML FROZ.PIGGY IV (14:44)
[2019-09-24] MEDS: CEFAZOLIN 1 GM/50 ML FROZ.PIGGY IV (14:59)
--- NOTE | 2019-09-24 15:16 | SUR.OPER ---
Supine on Padded OR bed, head on pillow, safety belt at thigh, arms secured on padded arm boards at <90 degrees abduction. Bump under right buttock. Legs uncrossed with pillow under knees, gel pad to heels, tape over blanket to lower legs.
--- NOTE | 2019-09-24 15:33 | SUR.OPER ---
viable baby boy born at 1519, APGARS 9/9, cord blood and placenta sent with OB RN, heart tones of 152 prior to start of case
[2019-09-24] MEDS: KETOROLAC 30 MG/ML VIAL IV ×2 (16:00→22:01)
--- NOTE | 2019-09-24 16:23 | P.OP_ITS ---
Operative Date/Time/Diagnoses Date of procedure: 09/24/19 Time of procedure: 15:00 Pre-op diagnosis: prior CS x2, worsening PIH Post-op diagnosis: same Procedure & Clinicians Procedure: repeat section and bilateral tubal ligation Same procedure as scheduled: Yes Indications: two prior sections, worsening PIH Surgeon: Bree Viveros Director Of Programming: Annamarie Bustos Anesthesia Type: Spinal Operative Notes Findings: Moderate amount of scar tissue between uterus and peritoneum, with omental involvement. Significant uterine window at site of prior hysterotomy. Moderately adherent placenta. Normal tubes and ovaries. Closure Type: primary Specimen(s): other (Portions of bilateral fallopian tubes) Estimated Blood Loss (mL): 500 Blood products transfused: none Procedure in detail: EBL: 500ccs Fluids:2200ccs UOP: 100ccs concentrated urine Findings: Male infant in cephalic presentation, Apgars 9+9, weight 6#4, normal tubes, ovaries. Procedures: The patient was taken to the operating room where spinal anesthesia was placed. She was prepped and draped in the normal sterile fashion in the dorsal supine position with a leftward tilt. A Pfannenstiel skin incision was made with a scalpel and carried through to the underlying layer of fascia. The fascia was incised in the midline and the incision extended laterally with Calhoun scissors. The superior aspect of this incision was grasped with Lindsay clamps, elevated. and the underlying rectus muscles dissected off bluntly. Attention was then turned to the inferior aspect of this incision which, in a similar fashion, was grasped, tented up with the Lindsay clamps, and the rectus muscles dissected off bluntly. The rectus muscles were then in the midline using the curved calhoun scissors, and the peritoneum was noted to be entered simultaneously. A moderate amount of omental scarring to the peritoneum and underside of the fascia was noted and reduced with the bovie. The peritoneal incision was extended superiorly and inferiorly with good visualization of the bladder. The bladder blade was inserted and the vesicao uterine peritoneum identified, grasped with pickups, and entered sharply with the Metzenbaum scissors. This incision was extended laterally, and the bladder flap created digitally. The bladder blade was then reinserted and the lower uterine segment incised in transverse fashion with the scalpel. The uterine incision was bluntly extended laterally. The bladder blade was removed, and the 's head delivered atraumatically with assistance from a vacuum. After 45 seconds of delayed cord clamping, the cord was clamped and cut. The nose and mouth were suctioned as needed with a bulb synringe, and the infant was handed off to awaiting pediatricians. The placenta was then removed spontaneously, and the uterus was exteriorized and cleared of all clots and debris. The uterine incision was repaired with 1-0 chromic in a running, locked fashion, and a 2nd layer of the same suture was used to obtain excellent hemostasis. Attention was then turned to the left fallopian tube, which was grasped with a dominic and elevated. A loop of 0 plain gut was used to double tie off a loop of fallopian tube, the portion of tube was removed with a metzenbaum scissors, and the ends of the tube cauterized with the bovie. The same procedure was performed on the right fallopian tube. The uterus was returned to the abdomen, and the gutters were cleared of all clots and debris. The bladder flap was reapproximated with 2-0 vicryl in a running fashion. The peritoneum was closed with 3-0 Vicryl, and the fascia reapproximated with 0 Vicryl in a running fashion. The subcutaneous layer was placed with 3 0 Vicryl in an interrupted fashion and the skin was closed with 4- 0 biosyn in a running fashion. The patient tolerated the procedure well sponge lap and needle counts were correct x2. 3 g of Ancef were given at commencement of the case. The patient was taken to the recovery room in stable condition. Complications: none Post-operative Condition: stable Disposition: PACU Plan for aftercare: Patient to continue home meds. q6 PIH labs overnight. Continue to closely monitor for HELLP.
--- NOTE | 2019-09-24 16:57 | SUR.PHASEI ---
1648-Pt transferred to L&D and handoff to TREE Gill in room in stable condition. Pt in good spirits and excited to see her baby. Denies pain or nausea, VSS. Assisted Bridget to change chux beneath pt and peripad. Small amount sanguinous vag discharge with 2 small clots noted.
--- NOTE | 2019-09-24 17:12 | SUR.PHASEI ---
Before transfer to L&D 100ml of clear yellow urine emptied from mancera.
[2019-09-24 20:11] LABS: Add Manual Diff / Slide Review NO; Basophils Absolute Auto 0 /uL (0-100); Basophils Percent Auto 0.2 % (0-2); Eosinophils Absolute Auto 100 /uL (0-450); Eosinophils Percent Auto 0.6 % (2-4); Hematocrit 34.2 % (36-46); Hemoglobin 11.5 g/dL (12.0-16.0); Lymphocytes Absolute Auto 1600 /uL (1100-4500); Lymphocytes Percent Auto 11.1 % (25-40); Mean Corpuscular HGB Conc 33.7 % (30-36); Mean Corpuscular Hemoglobin 27.5 PG (26-34); Mean Corpuscular Volume 81.6 fL (80-100); Monocytes Absolute Auto 400 /uL (0-900); Neutrophils Absolute Auto 12600 /uL (1500-7000); Neutrophils Percent Auto 85.1 % (50-75); Platelet Count 222 X10^3/uL (150-400); Red Cell Distribution Width 15.2 % (11.6-14.8); White Blood Cell Count 14.8 X10^3/uL (4.5-11.0)
[2019-09-24 20:26] LABS: Alanine Aminotransferase 94 IU/L (<35); Albumin 3.1 g/dL (3.5-5.0); Alkaline Phosphatase 136 U/L (38-126); Aspartate Aminotransferase 51 IU/L (14-36); BUN Creatinine Ratio 18.3 (6-22); Bilirubin Total 0.5 mg/dL (0.2-1.3); Blood Urea Nitrogen 11 mg/dL (7-17); Calcium 8.7 mg/dL (8.4-10.2); Carbon Dioxide 22 mmol/L (22-32); Chloride 107 mmol/L (98-107); Estimated Glomerular Filt Rate > 60.0 mL/min (>60); Glucose 114 mg/dL (70-100); HEMOLYSIS < 15 (0-50); Lactate Dehydrogenase 401 U/L (313-618); Potassium 3.7 mmol/L (3.4-5.1); Sodium 134 mmol/L (137-145); Total Protein 6.1 g/dL (6.3-8.2)
--- NOTE | 2019-09-24 20:32 | PM.OBPN.1 ---
Subjective - OB Subjective Patient comments: no complaints, pain well controlled and tolerating diet baby status: doing well Narrative: This patient is POD#0 s/p rCS ad BLTL for worsening PIH. The patient is doing well with no PIH complaints, good pain control, tolerating scant PO, mild lochia. Date Patient Seen: 09/24/19 Time Patient Seen: 20:34 Exam Vital Signs (past 8 hours): - 09/24/19 16:21 09/24/19 16:26 09/24/19 16:31 Temperature 99.1 F Pulse Rate 73 67 64 Respiratory Rate 15 15 16 Blood Pressure 135/81 132/78 143/81 H Pulse Oximetry 98 96 95 09/24/19 16:36 09/24/19 16:44 Temperature 97.8 F Pulse Rate 67 67 Respiratory Rate 16 16 Blood Pressure 136/79 132/96 H Pulse Oximetry 98 98 Oxygen Delivery Method Room Air Const General: cooperative, healthy appearing and comfortable Orientation: alert, awake and oriented x3 GI Inspection: incision (c/d/i) Palpation: soft and No tender Other: fundus firm, well below u Objective Labs Result Diagrams: 09/24/19 08:25 09/24/19 08:25 Labs: Laboratory Results - last 24 hr 09/24/19 09/24/19 09/24/19 08:05 08:25 08:25 WBC 12.7 H RBC 4.24 Hgb 11.5 L Hct 34.8 L MCV 82.1 MCH 27.1 MCHC 33.0 RDW 15.3 H Plt Count 244 Neut % (Auto) 79.4 H Lymph % (Auto) 15.4 L [place] % (Auto) 3.5 Eos % (Auto) 1.0 L Baso % (Auto) 0.7 Neut # (Auto) 30146 H Lymph # (Auto) 2000 [place] # (Auto) 500 Eos # (Auto) 100 Baso # (Auto) 100 PT 12.1 INR 1.1 APTT 27 Fibrinogen 510 H Sodium Potassium Chloride Carbon Dioxide BUN Creatinine Estimated GFR BUN/Creatinine Ratio Glucose Uric Acid Calcium Total Bilirubin AST ALT Alkaline Phosphatase Lactate Dehydrogenase Total Protein Albumin Globulin Albumin/Globulin Ratio U Random Total Protein Urine Creatinine Protein/Creatinin Ratio COVID-19 PCR Negative Blood Type Antibody Screen Antibody Identification Crossmatch 09/24/19 09/24/19 09/24/19 08:25 08:25 09:45 WBC RBC Hgb Hct MCV MCH MCHC RDW Plt Count Neut % (Auto) Lymph % (Auto) [place] % (Auto) Eos % (Auto) Baso % (Auto) Neut # (Auto) Lymph # (Auto) [place] # (Auto) Eos # (Auto) Baso # (Auto) PT INR APTT Fibrinogen Sodium 136 L Potassium 4.0 Chloride 109 H Carbon Dioxide 20 L BUN 13 Creatinine 0.59 Estimated GFR > 60.0 BUN/Creatinine Ratio 22.0 Glucose 97 Uric Acid 4.9 Calcium 8.8 Total Bilirubin 0.4 AST 58 H ALT 100 H Alkaline Phosphatase 163 H Lactate Dehydrogenase 439 Total Protein 6.8 Albumin 3.5 Globulin 3.3 Albumin/Globulin Ratio 1.1 U Random Total Protein 13 H Urine Creatinine 125.3 Protein/Creatinin Ratio 0.10 COVID-19 PCR Blood Type B Negative Antibody Screen Positive Antibody Identification Anti-D Crossmatch See Detail Assessment & Plan Plan day: 0 plan OB: routine care Comments: Patient is recovering appropriately postoperatively, with concentrated urine but no hypertension and stable labs. Repeat PIH labs in the AM, continue close monitoring of VS overnight. Patient administered a lower dose of labetalol for PM dose to avoid rebound tachycardia and hypertension in the setting of postoperative hypotension. Time Spent With Patient Time: Total time spent is greater than 50% in coordination of care (as documented) at patient's floor/unit and/or counseling patient: Time with patient: less than 15 minutes
[2019-09-24] MEDS: LABETALOL 100 MG TABLET PO (21:09)
[2019-09-24] MEDS: LACTATED RINGERS 1,000 ML 75 ML IV (21:59)
[2019-09-25] MEDS: KETOROLAC 30 MG/ML VIAL IV ×2 (04:04→09:30)
[2019-09-25] MEDS: LEVOTHYROXINE 100 MCG TABLET PO (06:05)
[2019-09-25 06:17] LABS: Add Manual Diff / Slide Review NO; Basophils Absolute Auto 100 /uL (0-100); Basophils Percent Auto 0.6 % (0-2); Eosinophils Absolute Auto 100 /uL (0-450); Eosinophils Percent Auto 0.9 % (2-4); Hematocrit 32.8 % (36-46); Hemoglobin 11.1 g/dL (12.0-16.0); Lymphocytes Absolute Auto 1700 /uL (1100-4500); Lymphocytes Percent Auto 15.4 % (25-40); Mean Corpuscular HGB Conc 33.8 % (30-36); Mean Corpuscular Hemoglobin 27.7 PG (26-34); Monocytes Absolute Auto 500 /uL (0-900); Monocytes Percent Auto 4.4 % (3-14); Neutrophils Absolute Auto 8400 /uL (1500-7000); Neutrophils Percent Auto 78.7 % (50-75); Platelet Count 190 X10^3/uL (150-400); Red Cell Distribution Width 15.1 % (11.6-14.8); White Blood Cell Count 10.7 X10^3/uL (4.5-11.0)
[2019-09-25 06:26] LABS: Uric Acid 4.9 mg/dL (2.5-6.2)
[2019-09-25 06:27] LABS: Alanine Aminotransferase 88 IU/L (<35); Albumin 2.9 g/dL (3.5-5.0); Alkaline Phosphatase 124 U/L (38-126); Aspartate Aminotransferase 45 IU/L (14-36); BUN Creatinine Ratio 19.4 (6-22); Bilirubin Total 0.4 mg/dL (0.2-1.3); Blood Urea Nitrogen 12 mg/dL (7-17); Calcium 8.3 mg/dL (8.4-10.2); Carbon Dioxide 22 mmol/L (22-32); Chloride 106 mmol/L (98-107); Estimated Glomerular Filt Rate > 60.0 mL/min (>60); Globulin 2.8 g/dL (1.7-4.1); Glucose 93 mg/dL (70-100); HEMOLYSIS < 15 (0-50); Potassium 3.7 mmol/L (3.4-5.1); Sodium 134 mmol/L (137-145); Total Protein 5.7 g/dL (6.3-8.2)
[2019-09-25 06:53] LABS: Lactate Dehydrogenase 364 U/L (313-618)
[2019-09-25] MEDS: LACTATED RINGERS 1,000 ML 75 ML IV (06:58)
--- NOTE | 2019-09-25 08:46 | PM.OBPN.1 ---
Subjective - OB Subjective Patient comments: no complaints, pain well controlled and tolerating diet baby status: doing well feeding status: pumping and bottle feeding Narrative: This patient is POD#1 s/p repeat CS and BLTL for worsening PIH in the setting of preeclampsia without severe features superimposed on cHTN, GDMA2, suspected prior placental abruption, and two prior CS. Date Patient Seen: 09/25/19 Time Patient Seen: 08:46 Interval history: The patient is recovering well this AM, with good pain control, no WOOD, visual changes, RUQ pain, mild lochia, and tolerating PO. Baby is doing well and is at bedside, and the patient is recovering appropriately with no other complaints. Blood pressures are well controlled. Exam Vital Signs (past 8 hours): 132/80, HR 76, 98.6F Oxygen Delivery Method Room Air Const General: cooperative, healthy appearing and comfortable Resp Effort & Inspection: normal respiratory effort Auscultation: clear to auscultation bilaterally Cardio Rate: regular rate Rhythm: regular rhythm GI Palpation: soft and No tender Other: fundus firm, well below u Skin General: no rashes or lesions noted Objective Labs Result Diagrams: 09/25/19 06:05 09/25/19 06:05 Labs: Laboratory Results - last 24 hr 09/24/19 09/24/19 09/24/19 08:05 08:25 08:25 WBC 12.7 H RBC 4.24 Hgb 11.5 L Hct 34.8 L MCV 82.1 MCH 27.1 MCHC 33.0 RDW 15.3 H Plt Count 244 Neut % (Auto) 79.4 H Lymph % (Auto) 15.4 L [place] % (Auto) 3.5 Eos % (Auto) 1.0 L Baso % (Auto) 0.7 Neut # (Auto) 84049 H Lymph # (Auto) 2000 [place] # (Auto) 500 Eos # (Auto) 100 Baso # (Auto) 100 PT 12.1 INR 1.1 APTT 27 Fibrinogen 510 H Sodium Potassium Chloride Carbon Dioxide BUN Creatinine Estimated GFR BUN/Creatinine Ratio Glucose Uric Acid Calcium Total Bilirubin AST ALT Alkaline Phosphatase Lactate Dehydrogenase Total Protein Albumin Globulin Albumin/Globulin Ratio U Random Total Protein Urine Creatinine Protein/Creatinin Ratio COVID-19 PCR Negative Blood Type Antibody Screen Antibody Identification Crossmatch 09/24/19 09/24/19 09/24/19 08:25 08:25 09:45 WBC RBC Hgb Hct MCV MCH MCHC RDW Plt Count Neut % (Auto) Lymph % (Auto) [place] % (Auto) Eos % (Auto) Baso % (Auto) Neut # (Auto) Lymph # (Auto) [place] # (Auto) Eos # (Auto) Baso # (Auto) PT INR APTT Fibrinogen Sodium 136 L Potassium 4.0 Chloride 109 H Carbon Dioxide 20 L BUN 13 Creatinine 0.59 Estimated GFR > 60.0 BUN/Creatinine Ratio 22.0 Glucose 97 Uric Acid 4.9 Calcium 8.8 Total Bilirubin 0.4 AST 58 H ALT 100 H Alkaline Phosphatase 163 H Lactate Dehydrogenase 439 Total Protein 6.8 Albumin 3.5 Globulin 3.3 Albumin/Globulin Ratio 1.1 U Random Total Protein 13 H Urine Creatinine 125.3 Protein/Creatinin Ratio 0.10 COVID-19 PCR Blood Type B Negative Antibody Screen Positive Antibody Identification Anti-D Crossmatch See Detail 09/24/19 09/24/19 09/25/19 20:06 20:06 06:05 WBC 14.8 H 10.7 RBC 4.20 4.00 Hgb 11.5 L 11.1 L Hct 34.2 L 32.8 L MCV 81.6 82.0 MCH 27.5 27.7 MCHC 33.7 33.8 RDW 15.2 H 15.1 H Plt Count 222 190 Neut % (Auto) 85.1 H 78.7 H Lymph % (Auto) 11.1 L 15.4 L [place] % (Auto) 3.0 4.4 Eos % (Auto) 0.6 L 0.9 L Baso % (Auto) 0.2 0.6 Neut # (Auto) 24573 H 8400 H Lymph # (Auto) 1600 1700 [place] # (Auto) 400 500 Eos # (Auto) 100 100 Baso # (Auto) 0 100 PT INR APTT Fibrinogen Sodium 134 L Potassium 3.7 Chloride 107 Carbon Dioxide 22 BUN 11 Creatinine 0.60 Estimated GFR > 60.0 BUN/Creatinine Ratio 18.3 Glucose 114 H Uric Acid Calcium 8.7 Total Bilirubin 0.5 AST 51 H ALT 94 H Alkaline Phosphatase 136 H Lactate Dehydrogenase 401 Total Protein 6.1 L Albumin 3.1 L Globulin 3.0 Albumin/Globulin Ratio 1.0 U Random Total Protein Urine Creatinine Protein/Creatinin Ratio COVID-19 PCR Blood Type Antibody Screen Antibody Identification Crossmatch 09/25/19 09/25/19 06:05 06:05 WBC RBC Hgb Hct MCV MCH MCHC RDW Plt Count Neut % (Auto) Lymph % (Auto) [place] % (Auto) Eos % (Auto) Baso % (Auto) Neut # (Auto) Lymph # (Auto) [place] # (Auto) Eos # (Auto) Baso # (Auto) PT INR APTT Fibrinogen Sodium 134 L Potassium 3.7 Chloride 106 Carbon Dioxide 22 BUN 12 Creatinine 0.62 Estimated GFR > 60.0 BUN/Creatinine Ratio 19.4 Glucose 93 Uric Acid 4.9 Calcium 8.3 L Total Bilirubin 0.4 AST 45 H ALT 88 H Alkaline Phosphatase 124 Lactate Dehydrogenase 364 Total Protein 5.7 L Albumin 2.9 L Globulin 2.8 Albumin/Globulin Ratio 1.0 U Random Total Protein Urine Creatinine Protein/Creatinin Ratio COVID-19 PCR Blood Type Antibody Screen Antibody Identification Crossmatch Assessment & Plan Plan day: 1 plan OB: routine postop care Comments: This patient is recovering well, with normalizing LFTs and no other signs of worsening PIH . She is otherwise meeting postoperative goals appropriately. Plan is to continue routine care along with close monitoring of vitals, repeating labs this PM. Time Spent With Patient Time: Total time spent is greater than 50% in coordination of care (as documented) at patient's floor/unit and/or counseling patient: Time with patient: 15-24 minutes
[2019-09-25] MEDS: LANOLIN OINT 7 GM 1 APPLIC TOP (09:31)
[2019-09-25] MEDS: SERTRALINE 50 MG TABLET PO (09:31)
[2019-09-25] MEDS: LABETALOL 100 MG TABLET 300 MG PO ×2 (09:31→21:12)
[2019-09-25 16:00] VITALS: BP 140/87; PULSE 71; RESP 16; TEMP 36.9
[2019-09-25] MEDS: IBUPROFEN 600 MG TABLET PO (16:57)
[2019-09-25] MEDS: ACETAMINOPHEN 325 MG TABLET 650 MG PO (20:18)
[2019-09-25 21:12] VITALS: BP 133/74; PULSE 80
[2019-09-26] MEDS: IBUPROFEN 600 MG TABLET PO ×2 (00:39→08:33)
[2019-09-26] MEDS: LEVOTHYROXINE 100 MCG TABLET PO (06:19)
[2019-09-26 07:29] LABS: Alanine Aminotransferase 74 IU/L (<35); Albumin Globulin Ratio 1.1 (1.0-2.8); Alkaline Phosphatase 113 U/L (38-126); Aspartate Aminotransferase 32 IU/L (14-36); BUN Creatinine Ratio 18.6 (6-22); Bilirubin Total 0.4 mg/dL (0.2-1.3); Blood Urea Nitrogen 13 mg/dL (7-17); Calcium 8.7 mg/dL (8.4-10.2); Carbon Dioxide 26 mmol/L (22-32); Chloride 108 mmol/L (98-107); Estimated Glomerular Filt Rate > 60.0 mL/min (>60); Globulin 2.8 g/dL (1.7-4.1); Glucose 96 mg/dL (70-100); HEMOLYSIS < 15 (0-50); Potassium 3.7 mmol/L (3.4-5.1); Sodium 136 mmol/L (137-145); Total Protein 5.8 g/dL (6.3-8.2)
[2019-09-26 07:33] LABS: Add Manual Diff / Slide Review NO; Basophils Absolute Auto 0 /uL (0-100); Basophils Percent Auto 0.4 % (0-2); Eosinophils Absolute Auto 100 /uL (0-450); Eosinophils Percent Auto 1.3 % (2-4); Hematocrit 32.2 % (36-46); Hemoglobin 10.8 g/dL (12.0-16.0); Lymphocytes Absolute Auto 1500 /uL (1100-4500); Lymphocytes Percent Auto 17.7 % (25-40); Mean Corpuscular HGB Conc 33.7 % (30-36); Mean Corpuscular Hemoglobin 27.6 PG (26-34); Mean Corpuscular Volume 81.9 fL (80-100); Monocytes Absolute Auto 400 /uL (0-900); Monocytes Percent Auto 5.2 % (3-14); Neutrophils Absolute Auto 6500 /uL (1500-7000); Neutrophils Percent Auto 75.4 % (50-75); Platelet Count 184 X10^3/uL (150-400); Red Blood Cell Count 3.93 X10^6/uL (4.0-5.2); Red Cell Distribution Width 15.4 % (11.6-14.8); White Blood Cell Count 8.6 X10^3/uL (4.5-11.0)
[2019-09-26] MEDS: ACETAMINOPHEN 325 MG TABLET 650 MG PO (08:32)
[2019-09-26 08:33] VITALS: BP 140/87
[2019-09-26] MEDS: DOCUSATE 250 MG CAPSULE PO (08:33)
[2019-09-26] MEDS: LABETALOL 100 MG TABLET 300 MG PO (08:33)
[2019-09-26] MEDS: SERTRALINE 50 MG TABLET PO (08:36)
--- NOTE | 2019-09-26 11:04 | P.DS_ITS ---
Discharge Providers Provider Date of admission: 09/24/19 08:01 Discharge Date: 09/26/19 Primary care physician: ARIELLE Granger Consults: 09/24/19 18:08 Consult to Bulk Station Operator Routine Comment: Discharge provider: Bree Viveros MD Summary Hospital Course Date Patient Seen: 09/26/19 Time Patient Seen: 11:00 Procedures: Repeat section and bilateral tubal ligation Hospital Course: This patient is a 34-year-old now para 3, admitted at 36 weeks for planned repeat section and tubal ligation. The patient had been followed for suspected chronic abruption, preeclampsia without severe features superimposed on chronic hypertension on labetalol, GDM A2 on insulin, 2 prior sections, hypothyroidism, Crohn's disease, and anxiety depression. She was followed jointly at [facility] and [facility] via [facility]. In her late 35th week, the patient was noted to have up trending LFTs, though she did not meet the rest of the diagnostic criteria for HELLP syndrome. The patient had also noticed increasing hand and face swelling, but no other complaints. In the setting of the history above, we discussed with the patient that it was unlikely that she would remain healthy and safe to deliver at 37 weeks as previously planned, and we proceeded with planned 36 week repeat section and tubal ligation. The procedure was uncomplicated, and the patient did well postoperatively with normalizing pH labs, well-controlled blood pressures, and no other symptoms. The patient was discharged on postoperative day 2 with planned clinic follow-up the next day. The did well and went home with the patient. Peripartum Data Delivery Method: Section complications: none 1: Gender: Male Disposition of : home Status at Discharge Cognitive/behavioral status at discharge: oriented Functional status at discharge: independent ambulation Overall status at discharge: patient is progressing back to baseline Time Spent with Patient Time attestation: Total time spent providing and/or coordinating discharge services: Objective Labs Result Diagrams: 09/26/19 07:00 09/26/19 07:00 Labs: Laboratory Results - last 24 hr 09/26/19 09/26/19 07:00 07:00 WBC 8.6 RBC 3.93 L Hgb 10.8 L Hct 32.2 L MCV 81.9 MCH 27.6 MCHC 33.7 RDW 15.4 H Plt Count 184 Neut % (Auto) 75.4 H Lymph % (Auto) 17.7 L [place] % (Auto) 5.2 Eos % (Auto) 1.3 L Baso % (Auto) 0.4 Neut # (Auto) 6500 Lymph # (Auto) 1500 [place] # (Auto) 400 Eos # (Auto) 100 Baso # (Auto) 0 Sodium 136 L Potassium 3.7 Chloride 108 H Carbon Dioxide 26 BUN 13 Creatinine 0.70 Estimated GFR > 60.0 BUN/Creatinine Ratio 18.6 Glucose 96 Calcium 8.7 Total Bilirubin 0.4 AST 32 ALT 74 H Alkaline Phosphatase 113 Total Protein 5.8 L Albumin 3.0 L Globulin 2.8 Albumin/Globulin Ratio 1.1 Exam Vital Signs (past 8 hours): - 09/26/19 08:33 Blood Pressure 140/87 Oxygen Delivery Method Room Air Discharge Plan Discharge Plan Patient Disposition: Home Discharge orders & Medications Prescriptions: New oxycodone 5 mg tablet 5 mg PO Q8H PRN (Reason: pain) Qty: 20 RF: 0 acetaminophen [Tylenol] 325 mg tablet 325 mg PO Q6H PRN (Reason: pain) Qty: 30 RF: 0 ibuprofen 600 mg tablet 600 mg PO Q6H PRN (Reason: pain) Qty: 30 RF: 1 docusate sodium 100 mg capsule 100 mg PO DAILY Qty: 30 RF: 0 Continued prenat.vits,maria e,[id number] Tablet 1 tab PO DAILY RF: 0 sertraline [Zoloft] 50 mg tablet 50 mg PO DAILY RF: 0 labetalol 300 mg tablet 300 mg PO BID Qty: 60 RF: 3 levothyroxine 100 mcg capsule 100 mcg PO DAILY Qty: 30 RF: 3 (DME) blood-glucose meter [Blood Glucose Monitoring] Kit See Rx Instructions .ROUTE .MEDSUPPLY Qty: 1 RF: 0 (DME) blood sugar diagnostic [Blood Glucose Test] Strip See Rx Instructions .ROUTE .MEDSUPPLY Qty: 120 RF: 3 (DME) lancets Misc See Rx Instructions .ROUTE .MEDSUPPLY Qty: 120 RF: 3 Discontinued aspirin [Adult Aspirin Regimen] 81 mg tablet,delayed release (DR/EC) 81 mg PO DAILY RF: 0 insulin lispro 100 unit/mL Insulin Pen 4 unit SUBCUT BID RF: 0 Humulin N NPH Insulin KwikPen 100 unit/mL (3 mL) Insulin Pen 12 unit SUBCUT BEDTIME RF: 0 Follow up/Referrals: [place] MD [Physician] - 1 Day (BP check tomorrow, September at 10:45am) Erica Redmond ARNP [Primary Care Provider] - Diet/Activity/Treatments Diet: Regular Activity: Nothing in the vagina for 6 weeks. Avoid lifting more than 10 lb for 6 weeks. If you have headaches, visual changes, right upper quadrant pain, chest pain, trouble breathing, increasing bleeding, fevers, chills, or any other symptoms or concerns, call or come to the emergency department. Skin/Wound/Dressing Care Report to your healthcare provider any signs of infection, such as:: chills, fever, night sweats, increased pain, unusual drainage and unusual redness Visit Report/Discharge Packet Instructions: DI for Visit Report Forms: Patient Portal/API, Stroke Signs & Symptoms Discharge Data Primary Care Provider: Erica Redmond
--- NOTE | 2019-09-26 11:04 | PM.OBPN.1 ---
Subjective - OB Subjective Patient comments: no complaints, pain well controlled, incisional pain, tolerating diet and flatus present baby status: doing well [place] feeding status: exclusively breast feeding Narrative: This patient is a 34-year-old postop day 2 status post repeat section and bilateral tubal ligation in the setting of multiple complications including worsening PIH. The patient is doing well, with well-controlled blood pressures on her 300 mg of labetalol b.i.d., normalizing PIH labs, decrease in swelling, diuresing well, and no PIH complaints. Date Patient Seen: 09/26/19 Time Patient Seen: 11:04 Interval history: Patient reports that she is ambulating, voiding, passing flatus, has minimal to mild lochia, is well, has good pain control, and has no other concerns or complaints today. Patient strongly desires discharge, as has 2 young children at home. Exam Vital Signs (past 8 hours): 128-140/74-88, hr 71-90 09/26/19 08:33 Blood Pressure 140/87 Oxygen Delivery Method Room Air Const General: cooperative, healthy appearing and comfortable Resp Effort & Inspection: normal respiratory effort Auscultation: clear to auscultation bilaterally Cardio Rate: regular rate Rhythm: regular rhythm GI Inspection: normal to inspection Palpation: soft and No tender Other: Incision clean, dry, intact, covered by Aquacel. Objective Labs Result Diagrams: 09/26/19 07:00 09/26/19 07:00 Labs: Laboratory Results - last 24 hr 09/26/19 09/26/19 07:00 07:00 WBC 8.6 RBC 3.93 L Hgb 10.8 L Hct 32.2 L MCV 81.9 MCH 27.6 MCHC 33.7 RDW 15.4 H Plt Count 184 Neut % (Auto) 75.4 H Lymph % (Auto) 17.7 L [place] % (Auto) 5.2 Eos % (Auto) 1.3 L Baso % (Auto) 0.4 Neut # (Auto) 6500 Lymph # (Auto) 1500 [place] # (Auto) 400 Eos # (Auto) 100 Baso # (Auto) 0 Sodium 136 L Potassium 3.7 Chloride 108 H Carbon Dioxide 26 BUN 13 Creatinine 0.70 Estimated GFR > 60.0 BUN/Creatinine Ratio 18.6 Glucose 96 Calcium 8.7 Total Bilirubin 0.4 AST 32 ALT 74 H Alkaline Phosphatase 113 Total Protein 5.8 L Albumin 3.0 L Globulin 2.8 Albumin/Globulin Ratio 1.1 Assessment & Plan Plan day: 2 plan OB: discharge home Comments: This patient is doing well postoperatively, meeting postoperative goals, normalizing pH labs with resolving signs and symptoms of PIH. The patient strongly desires discharge, we discussed at length precautions for return and continuing her antihypertensives. The patient will return to clinic tomorrow for a blood pressure and symptom check. All questions were answered. Time Spent With Patient Time: Total time spent is greater than 50% in coordination of care (as documented) at patient's floor/unit and/or counseling patient: Time with patient: 15-24 minutes
== END 2019-09-26 14:00 | disposition home or self-care (01) | DRG 783 ==
PROVIDERS: Admitting Provider Obstetrics & Gynecology; PCP Nurse Practitioner Family; Referring Provider Obstetrics & Gynecology; Visit Provider Obstetrics & Gynecology
PROC: 10D00Z1 Extraction of Products of Conception, Low, Open Approach (ICD-10-PCS; CPT 59514; principal; 2019-09-24 14:45)
DX: O14.03 Mild to moderate pre-eclampsia, third trimester (principal); O60.23X0 Term delivery with preterm labor, third trimester, not applicable or unspecified; O24.424 Gestational diabetes mellitus in childbirth, insulin controlled; O99.824 Streptococcus B carrier state complicating childbirth; Z3A.36 36 weeks gestation of pregnancy; Z37.0 Single live birth; Z30.2 Encounter for sterilization; Z11.59 Encounter for screening for other viral diseases
CPT/HCPCS: 36415; 58611; 59025; 59050; 59514; 59515; 80053; 82570; 83615; 84156; 84450; 84550; 85025; 85384; 85610; 85730; 86850; 86870; 86900; 86901; 87635; J0690; J1885; J2274; J2405; J2590; J3010

== ENCOUNTER → 2019-09-30 13:43 | Outpatient (CLI) | payer OTHER, MEDICAID, SELFPAY ==
[2019-09-30 14:08] LABS: Add Manual Diff / Slide Review NO; Basophils Absolute Auto 100 /uL (0-100); Basophils Percent Auto 1.1 % (0-2); Eosinophils Absolute Auto 200 /uL (0-450); Eosinophils Percent Auto 1.8 % (2-4); Hematocrit 34.6 % (36-46); Hemoglobin 11.5 g/dL (12.0-16.0); Lymphocytes Absolute Auto 1800 /uL (1100-4500); Lymphocytes Percent Auto 21.8 % (25-40); Mean Corpuscular HGB Conc 33.4 % (30-36); Mean Corpuscular Hemoglobin 27.3 PG (26-34); Mean Corpuscular Volume 81.8 fL (80-100); Monocytes Absolute Auto 400 /uL (0-900); Monocytes Percent Auto 4.1 % (3-14); Neutrophils Absolute Auto 6000 /uL (1500-7000); Neutrophils Percent Auto 71.2 % (50-75); Platelet Count 252 X10^3/uL (150-400); Red Blood Cell Count 4.23 X10^6/uL (4.0-5.2); Red Cell Distribution Width 14.7 % (11.6-14.8); White Blood Cell Count 8.5 X10^3/uL (4.5-11.0)
[2019-09-30 14:28] LABS: Alanine Aminotransferase 37 IU/L (<35); Albumin 3.4 g/dL (3.5-5.0); Albumin Globulin Ratio 1.3 (1.0-2.8); Alkaline Phosphatase 107 U/L (38-126); Aspartate Aminotransferase 20 IU/L (14-36); BUN Creatinine Ratio 16.7 (6-22); Bilirubin Total 0.4 mg/dL (0.2-1.3); Blood Urea Nitrogen 13 mg/dL (7-17); Calcium 9.1 mg/dL (8.4-10.2); Carbon Dioxide 23 mmol/L (22-32); Chloride 109 mmol/L (98-107); Estimated Glomerular Filt Rate > 60.0 mL/min (>60); Globulin 2.7 g/dL (1.7-4.1); Glucose 81 mg/dL (70-100); HEMOLYSIS < 15 (0-50); Lactate Dehydrogenase 460 U/L (313-618); Potassium 4.2 mmol/L (3.4-5.1); Sodium 139 mmol/L (137-145); Total Protein 6.1 g/dL (6.3-8.2); Uric Acid 6.1 mg/dL (2.5-6.2)
== END ==
PROVIDERS: PCP Nurse Practitioner Family; Referring Provider Obstetrics & Gynecology; Visit Provider Obstetrics & Gynecology
DX: O16.9 Unspecified maternal hypertension, unspecified trimester (principal)
CPT/HCPCS: 36415; 80053; 83615; 84550; 85025

== ENCOUNTER 2019-10-03 01:39 | Observation (INO) | payer OTHER, MEDICAID, SELFPAY ==
[2019-10-03] VITALS (44 sets, daily range): BP systolic 144–223; BP diastolic 75–118; PULSE 61–110; RESP 16–22; TEMP 36.2–36.8; O2SAT 97–100; BMI 42.3
--- NOTE | 2019-10-03 02:08 | ED.GENADULT ---
HPI - General Adult General Chief complaint: Hypertension Stated complaint: having issues blood pressure/8 days post pardum Time Seen by Provider: 10/03/19 01:48 Source: patient Mode of arrival: Family Vehicle Limitations: no limitations History of Present Illness HPI narrative: Patient complains a headache ongoing since yesterday afternoon. History of preeclampsia during . day 8. . Has been doing well. Patient denies any seizure activity. No confusion no vision changes. No pedal edema. She called her OBGYN and was instructed to come to the emergency department. Patient is on labetalol 300 mg twice a day. No slurred speech facial droop. No confusion. Related Data Home Medications Medication Instructions Recorded Confirmed prenat.vits,maria e,[id number] 1 tab PO DAILY 05/15/19 10/03/19 sertraline 50 mg tablet 50 mg PO DAILY 05/15/19 10/03/19 labetalol 300 mg PO BID 10/03/19 10/03/19 Previous Rx's Medication Instructions Recorded levothyroxine 100 mcg capsule 100 mcg PO DAILY #30 cap 07/17/19 ibuprofen 600 mg PO Q6H PRN #30 tab 09/26/19 oxycodone 5 mg PO Q8H PRN #20 tab 09/26/19 Allergies Allergy/AdvReac Type Severity Reaction Status Date / Time No Known Drug Allergies Allergy Verified 05/15/19 10:26 Review of Systems Review of Systems Narrative: GENERAL: Denies chills, fatigue, malaise, fever, sweats. HEENT: Denies sinus pain, ear pain, sore throat, difficulty swallowing, dizziness. RESPIRATORY: Denies dyspnea, cough, wheezing, hemoptysis, sputum. CARDIOVASCULAR: Denies chest pain, palpitations, orthopnea, edema, GASTROINTESTINAL: Complains of nausea, denies vomiting, abdominal pain, diarrhea, constipation, melena. : Denies dysuria, frequency, incontinence, hematuria, urinary retention. MUSCULOSKELETAL: denies weakness, joint pain, or bony pain SKIN: Denies rash, skin lesions, or other NEUROLOGIC: Denies weakness, complains of headache, denies numbness, change in speech, confusion, seizures, incoordination. PSYCHIATRIC: No concerning psychosocial issues. ROS Unobtainable: All systems reviewed & are unremarkable except as noted in HPI and below Patient History Medical History Abnormal Pap smear of cervix (Acute) Eczema of both hands (Acute) Migraine (Acute) Obesity (Acute) Surgical History H/O colonoscopy (Acute ~2012) H/O colonoscopy with polypectomy (Acute ~2018) H/O LEEP (Acute) History of carpal tunnel release (Acute ~10/18/18) History of primary section (Acute ~10/22/15) History of tonsillectomy and adenoidectomy (Acute ~2005) S/P ankle ligament repair (Acute ~2006) S/P repeat low transverse (Acute ~11/14/16) [place] teeth removed (Acute ~2005) Family History Mother Preeclampsia Graves disease Father Hypertension SVT (supraventricular tachycardia) Anxiety Grandfather Unknown whether patient has any health problems Grandmother Unknown whether patient has any health problems Grandfather Cancer Brain tumor Grandmother No problems noted. 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 Well-nourished, well-developed patient, in no distress, not toxic HEAD: Atraumatic. Normocephalic. EYES: Pupils equal round and reactive. Extraocular motions intact. No scleral icterus. No injection or drainage. ENT: Nose without bleeding, purulent drainage. Throat without erythema, tonsillar hypertrophy or exudate. Airway patent. NECK: Trachea midline. Non tender CARDIOVASCULAR: Regular rate and rhythm without murmurs, gallops, or rubs. RESPIRATORY: Clear to auscultation. Breath sounds equal bilaterally. No wheezes, rales, or rhonchi. GASTROINTESTINAL: Abdomen soft, non-tender, nondistended. EXTREMITIES: No edema or joint tenderness. BACK: Nontender without deformity or crepitance. No flank tenderness. NEURO: AOx3. Clear speech no facial droop. Strong bilateral patellar reflexes. Not hyper reflexive SKIN: No rash or erythema of visible areas PSYCH: Not anxious, is cooperative Initial Vital Signs Initial Vital Signs: Vital Signs Pulse Rate 74 10/03/19 01:44 Blood Pressure 188/92 H 10/03/19 01:44 Pulse Oximetry 98 10/03/19 01:44 Course Course Course Narrative: Blood pressure not controlled with home medications. Will need adjustments to lower blood pressures safely Decision to Admit Date: 10/03/19 Decision to Admit time: 04:07 Orders Ordered: ED Orders 10/03/19 01:54 Complete Blood Count AUTO DIFF Stat Comprehensive Metabolic Panel Stat Lipase Stat Partial Thromboplastin Time Stat Prothrombin Time INR Stat Troponin & CK Cardiac Panel Stat 10/03/19 01:56 EKG-12 Lead Stat 10/03/19 03:05 Urinalysis and Microscopic Stat Acetaminophen (Tylenol) 650 mg PO Q6HR PRN PRN Reason: Fever/Mild Pain (1-3) Nifedipine (Procardia Xl) 30 mg PO DAILY [place] Ondansetron HCl (Zofran) 4 mg IV Q4HR PRN PRN Reason: Nausea And Vomiting Discontinued Medications Hydralazine HCl (Apresoline) 10 mg IV NOW ONE Stop: 10/03/19 04:03 Last Admin: 10/03/19 04:12 Dose: 10 mg Documented by: CHAN Hydralazine HCl (Apresoline) 10 mg IV NOW ONE Stop: 10/03/19 05:10 Last Admin: 10/03/19 05:16 Dose: 10 mg Documented by: MARIO Nifedipine (Procardia Xl) 30 mg PO NOW ONE Stop: 10/03/19 04:43 Last Admin: 10/03/19 04:56 Dose: 30 mg Documented by: DEBORAH Oxycodone/Acetaminophen (Percocet 5/325) 1 tab PO NOW ONE Stop: 10/03/19 05:10 Last Admin: 10/03/19 05:16 Dose: 1 tab Documented by: MARIO Consultations Consultation #1: Spoke with Dr. Bright.. Patient to be admitted to their service. Started with hydralazine 10 mg IV as needed for lowering blood pressure. Start with nifedipine 30 mg XR Time: 04:08 Vital Signs Vital signs: Vital Signs - 8 hr 10/03/19 01:44 10/03/19 01:52 10/03/19 02:00 Temperature 98.2 F Pulse Rate 74 70 64 Respiratory Rate 16 Blood Pressure 188/92 H 188/92 H Pulse Oximetry 98 98 97 10/03/19 02:01 10/03/19 02:30 10/03/19 02:31 Temperature Pulse Rate 63 65 63 Respiratory Rate Blood Pressure 193/89 H 191/89 H Pulse Oximetry 98 97 97 10/03/19 03:00 10/03/19 03:01 10/03/19 03:21 Temperature Pulse Rate 65 61 67 Respiratory Rate Blood Pressure 204/93 H Pulse Oximetry 97 98 100 10/03/19 03:30 10/03/19 03:33 10/03/19 03:40 Temperature Pulse Rate 62 68 83 Respiratory Rate Blood Pressure 223/116 H Pulse Oximetry 98 99 98 10/03/19 03:50 10/03/19 04:00 10/03/19 04:01 Temperature Pulse Rate 62 62 62 Respiratory Rate Blood Pressure 215/118 H Pulse Oximetry 98 98 98 10/03/19 04:10 10/03/19 04:12 10/03/19 04:20 Temperature Pulse Rate 67 83 69 Respiratory Rate 18 Blood Pressure 215/118 H Pulse Oximetry 98 99 10/03/19 04:27 10/03/19 04:30 10/03/19 04:31 Temperature Pulse Rate 68 67 65 Respiratory Rate 19 20 19 Blood Pressure 217/111 H 211/98 H Pulse Oximetry 98 99 98 10/03/19 04:41 10/03/19 04:50 10/03/19 05:00 Temperature Pulse Rate 63 65 63 Respiratory Rate 19 18 22 Blood Pressure 201/105 H 205/104 H Pulse Oximetry 98 98 98 10/03/19 05:01 10/03/19 05:10 10/03/19 05:15 Temperature Pulse Rate 74 66 63 Respiratory Rate 17 19 Blood Pressure 211/102 H 211/102 H Pulse Oximetry 98 98 10/03/19 05:16 10/03/19 05:21 10/03/19 05:31 Temperature Pulse Rate 63 66 70 Respiratory Rate 17 20 Blood Pressure 211/102 H 209/105 H 211/98 H Pulse Oximetry 98 98 Medical Decision Making Differential Diagnosis Differential Diagnosis: Hypertensive urgency/preeclampsia Medical Records Medical records reviewed: Yes I reviewed the patient's medical records. Lab Data Lab results reviewed: Yes I reviewed the patient's lab results. Result diagrams: 10/03/19 01:54 10/03/19 01:54 Labs: Lab Results 10/03/19 10/03/19 10/03/19 Range/Units 01:54 01:54 01:54 WBC 9.9 (4.5-11.0) X10^3/uL RBC 4.27 (4.0-5.2) X10^6/uL Hgb 11.6 L (12.0-16.0) g/dL Hct 35.3 L (36-46) % MCV 82.7 (80-100) fL MCH 27.1 (26-34) PG MCHC 32.7 (30-36) % RDW 14.6 (11.6-14.8) % Plt Count 288 (150-400) X10^3/uL Neut % (Auto) 67.3 (50-75) % Lymph % (Auto) 25.8 (25-40) % [place] % (Auto) 4.7 (3-14) % Eos % (Auto) 1.7 L (2-4) % Baso % (Auto) 0.5 (0-2) % Neut # (Auto) 6700 (0061-6601) /uL Lymph # (Auto) 2600 (9787-7473) /uL [place] # (Auto) 500 (0-900) /uL Eos # (Auto) 200 (0-450) /uL Baso # (Auto) 0 (0-100) /uL PT 13.0 H (10.1-12.7) SECONDS INR 1.1 (0.9-1.3) APTT 30 D (26.4-36.2) SECONDS Sodium 138 (137-145) mmol/L Potassium 3.6 (3.4-5.1) mmol/L Chloride 108 H (98-107) mmol/L Carbon Dioxide 23 (22-32) mmol/L BUN 19 H (7-17) mg/dL Creatinine 0.96 (0.52-1.04) mg/dL Estimated GFR > 60.0 (>60) mL/min BUN/Creatinine Ratio 19.8 (6-22) Glucose 97 (70-100) mg/dL Calcium 8.7 (8.4-10.2) mg/dL Total Bilirubin 0.4 (0.2-1.3) mg/dL AST 22 (14-36) IU/L ALT 29 (<35) IU/L Alkaline Phosphatase 100 (38-126) U/L Total Creatine Kinase 149 H (30-135) U/L CK-MB (CK-2) 1.01 (<2.37) ng/mL CK-MB (CK-2) Rel Index 0.7 L (1.5-5.0) % Troponin I < 0.012 (0.01-0.034) ng/mL Total Protein 6.5 (6.3-8.2) g/dL Albumin 3.5 (3.5-5.0) g/dL Globulin 3.0 (1.7-4.1) g/dL Albumin/Globulin Ratio 1.2 (1.0-2.8) Lipase 84 (23-300) U/L Urine Color Urine Appearance Urine pH (4.5-8.0) Ur Specific [place] (1.000-1.035) Urine Protein (Negative) Urine Glucose (UA) (Negative) g/dL Urine Ketones (NEGATIVE) Urine Occult Blood (Negative) Urine Nitrate (Negative) Urine Bilirubin (NEGATIVE) Urine Urobilinogen (0.2) E.U./dL Ur Leukocyte Esterase (NEGATIVE) Urine RBC (0-5/HPF) Urine WBC (0-5/HPF) Urine Bacteria (None) Ur Culture Indicated? COVID-19 PCR (Negative) 10/03/19 10/03/19 Range/Units 03:05 04:20 WBC (4.5-11.0) X10^3/uL RBC (4.0-5.2) X10^6/uL Hgb (12.0-16.0) g/dL Hct (36-46) % MCV (80-100) fL MCH (26-34) PG MCHC (30-36) % RDW (11.6-14.8) % Plt Count (150-400) X10^3/uL Neut % (Auto) (50-75) % Lymph % (Auto) (25-40) % Fleming % (Auto) (3-14) % Eos % (Auto) (2-4) % Baso % (Auto) (0-2) % Neut # (Auto) (0561-3145) /uL Lymph # (Auto) (2756-8605) /uL Fleming # (Auto) (0-900) /uL Eos # (Auto) (0-450) /uL Baso # (Auto) (0-100) /uL PT (10.1-12.7) SECONDS INR (0.9-1.3) APTT (26.4-36.2) SECONDS Sodium (137-145) mmol/L Potassium (3.4-5.1) mmol/L Chloride (98-107) mmol/L Carbon Dioxide (22-32) mmol/L BUN (7-17) mg/dL Creatinine (0.52-1.04) mg/dL Estimated GFR (>60) mL/min BUN/Creatinine Ratio (6-22) Glucose (70-100) mg/dL Calcium (8.4-10.2) mg/dL Total Bilirubin (0.2-1.3) mg/dL AST (14-36) IU/L ALT (<35) IU/L Alkaline Phosphatase (38-126) U/L Total Creatine Kinase (30-135) U/L CK-MB (CK-2) (<2.37) ng/mL CK-MB (CK-2) Rel Index (1.5-5.0) % Troponin I (0.01-0.034) ng/mL Total Protein (6.3-8.2) g/dL Albumin (3.5-5.0) g/dL Globulin (1.7-4.1) g/dL Albumin/Globulin Ratio (1.0-2.8) Lipase (23-300) U/L Urine Color Yellow Urine Appearance Clear Urine pH 6.5 (4.5-8.0) Ur Specific [place] 1.015 (1.000-1.035) Urine Protein Trace H (Negative) Urine Glucose (UA) Negative (Negative) g/dL Urine Ketones Negative (NEGATIVE) Urine Occult Blood 3+ H (Negative) Urine Nitrate Negative (Negative) Urine Bilirubin Negative (NEGATIVE) Urine Urobilinogen 0.2 (0.2) E.U./dL Ur Leukocyte Esterase Negative (NEGATIVE) Urine RBC 1-5/hpf (0-5/HPF) Urine WBC None seen (0-5/HPF) Urine Bacteria None seen (None) Ur Culture Indicated? Cult not indicated COVID-19 PCR Negative (Negative) ECG Data Attestation: I personally reviewed and interpreted this ECG as follows: Interpretation: Normal sinus rhythm rate 66, normal EKG MDM Narrative Medical decision making narrative: Patient to be admitted for hypertensive urgency. No imaging indicated at this time. No neuro complaints Discharge Plan Departure Patient Disposition: Admitted as Observation Clinical Impression: Hypertensive urgency Discharge Date/Time: 10/03/19 05:38 Referrals: Erica Redmond ARNP [Primary Care Provider] - Admit Date/Time: 10/03/19 05:36 Admit Provider: Bree Viveros
[2019-10-03 02:28] LABS: Add Manual Diff / Slide Review NO; Basophils Absolute Auto 0 /uL (0-100); Basophils Percent Auto 0.5 % (0-2); Eosinophils Absolute Auto 200 /uL (0-450); Eosinophils Percent Auto 1.7 % (2-4); Hematocrit 35.3 % (36-46); Hemoglobin 11.6 g/dL (12.0-16.0); Lymphocytes Absolute Auto 2600 /uL (1100-4500); Lymphocytes Percent Auto 25.8 % (25-40); Mean Corpuscular HGB Conc 32.7 % (30-36); Mean Corpuscular Hemoglobin 27.1 PG (26-34); Mean Corpuscular Volume 82.7 fL (80-100); Monocytes Absolute Auto 500 /uL (0-900); Monocytes Percent Auto 4.7 % (3-14); Neutrophils Absolute Auto 6700 /uL (1500-7000); Neutrophils Percent Auto 67.3 % (50-75); Platelet Count 288 X10^3/uL (150-400); Red Blood Cell Count 4.27 X10^6/uL (4.0-5.2); Red Cell Distribution Width 14.6 % (11.6-14.8); White Blood Cell Count 9.9 X10^3/uL (4.5-11.0)
[2019-10-03 02:39] LABS: Alanine Aminotransferase 29 IU/L (<35); Albumin 3.5 g/dL (3.5-5.0); Albumin Globulin Ratio 1.2 (1.0-2.8); Alkaline Phosphatase 100 U/L (38-126); Aspartate Aminotransferase 22 IU/L (14-36); BUN Creatinine Ratio 19.8 (6-22); Bilirubin Total 0.4 mg/dL (0.2-1.3); Blood Urea Nitrogen 19 mg/dL (7-17); Calcium 8.7 mg/dL (8.4-10.2); Carbon Dioxide 23 mmol/L (22-32); Chloride 108 mmol/L (98-107); Creatine Kinase 149 U/L (30-135); Estimated Glomerular Filt Rate > 60.0 mL/min (>60); Glucose 97 mg/dL (70-100); HEMOLYSIS < 15 (0-50); Lipase 84 U/L (23-300); Potassium 3.6 mmol/L (3.4-5.1); Sodium 138 mmol/L (137-145); Total Protein 6.5 g/dL (6.3-8.2)
--- NOTE | 2019-10-03 02:48 | PC.NURSE ---
PT states headache, 8 days , hx of preeclampsia, gestational diabetes, placenta abruptia and at 36 weeks. Pt states bp increased after baby was born, takes labatalol 300mg bid, Dr told her to come to ER bp at home was 200s/100s. Pt denies CP or SOB.
[2019-10-03 02:49] LABS: INR 1.1 (0.9-1.3)
[2019-10-03 02:50] LABS: Troponin I < 0.012 ng/mL (0.01-0.034)
[2019-10-03 02:51] LABS: PTT Partial Thromboplastin Tim 30 SECONDS (26.4-36.2)
[2019-10-03 02:54] LABS: CKMB % Relative Index 0.7 % (1.5-5.0); Creatine Kinase MB 1.01 ng/mL (<2.37)
[2019-10-03 03:13] LABS: Appearance Urine UA CLEAR; Bacteria Urine None Seen; Bilirubin Urine UA NEGATIVE (NEGATIVE); Color Urine UA YELLOW; Glucose Urine UA NEGATIVE (Negative); Ketones Urine UA NEGATIVE (NEGATIVE); Leukocyte Esterase Urine UA NEGATIVE (NEGATIVE); Nitrite Urine UA NEGATIVE (Negative); Occult Blood Urine UA 3+ (Negative); Protein Urine UA TRACE (Negative); Specific Gravity Urine UA 1.015 (1.000-1.035); Urobilinogen Urine UA 0.2 E.U./dL (0.2); WBC Urine None Seen (0-5/HPF)
[2019-10-03 03:19] LABS: pH Urine UA 6.5 (4.5-8.0)
[2019-10-03 03:20] LABS: Culture Indicated Urine Cult Not Indicated; RBC Urine 1-5/HPF (0-5/HPF)
[2019-10-03] MEDS: HYDRALAZINE 20 MG/ML VIAL 10 MG IV ×3 (04:06→09:33)
[2019-10-03] MEDS: NIFEdipine 30 MG TAB ER PO ×2 (04:56→18:47)
[2019-10-03] MEDS: OXYCODONE/ACETAMINOPHEN 5/325 TABLET 1 TAB PO (05:16)
[2019-10-03 05:34] LABS: COVID19 -Nasal RAPID Negative (Negative)
--- NOTE | 2019-10-03 06:39 | PC.NURSE ---
Pt to room 205 via stretcher and transferred to bed. Pt is awake and oriented x 3. Pt states she has a headache 5/10 which she received a percocet for while in the ER and it did not help. Pt is now resting with a cool cloth on her forehead and an ice pack to the back of her neck. Pt states she is feeling a little bit nauseated. Oriented Pt to bed, call light, tv controls and requested that Pt call for assistance before getting up. Pt denies dizziness or shortness of breath. IV is currently SL.
[2019-10-03] MEDS: ONDANSETRON 4 MG/2 ML INJ IV (06:47)
--- NOTE | 2019-10-03 08:54 | PM.HP.1 ---
History of Present Illness History of Present Illness Date Patient Seen: 10/03/19 Time Patient Seen: 08:30 Date of Onset of Symptoms: 10/02/19 Chief complaint: having issues blood pressure/8 days post pardum Narrative: This patient is a 34yo now P3, POD#3 s/p repeat CS and BLTL in the setting of cHTN with superimposed preeclampsia without severe features, GDMA2 on insulin, chronic placental abruption, 2x prior CS, and multiple other medical comorbidities. The patient's blood pressure had been well controlled during her on 300mg labetalol BID, and she had been being monitored as an outpatient with BP checks and PIH labs. She reports that she had a mild global WOOD on Monday that resolved after a small amount of caffeine, PO hydration, and a nap, but that she had otherwise felt well until late Monday evening, when she awoke with a severe headache, found her home BPs to be severely elevated, and presented to the ED. She was administered 20mg IV hydralazine and 30mg ER nifedipine, and admitted for monitoring when preeclampsia labs were normal. She denies visual changes, RUQ pain, increased swelling, focal neurologic symptoms, chest pain, SOB, palpitations, or any other complaints this AM, and reports that her headache is improving though still present, is behind her eyes, and is worsened by movement and especially by light. She reports that since delivery, she has been intermittently forgetting to take her PO labetalol dose. Patient History Medical History (Updated 10/03/19 @ 13:46 by Bree Viveros MD) Abnormal Pap smear of cervix (Acute) Eczema of both hands (Acute) Gestational diabetes (Acute) Migraine (Acute) Obesity (Acute) Surgical History H/O colonoscopy (Acute ~2012) H/O colonoscopy with polypectomy (Acute ~2018) H/O LEEP (Acute) History of carpal tunnel release (Acute ~10/18/18) History of primary section (Acute ~10/22/15) History of tonsillectomy and adenoidectomy (Acute ~2005) S/P ankle ligament repair (Acute ~2006) S/P repeat low transverse (Acute ~11/14/16) [place] teeth removed (Acute ~2005) Family & Social History Family History Mother Preeclampsia Graves disease Father Hypertension SVT (supraventricular tachycardia) Anxiety Grandfather Unknown whether patient has any health problems Grandmother Unknown whether patient has any health problems Grandfather Cancer Brain tumor Grandmother No problems noted. Sister Depression Anxiety Social History: household members spouse,children Prior Living Arrangements House Safety & Behavioral: Feels Safe in Current Yes Environment Been Physically Hurt or No Threatened By a Person Suicidal Ideation Description None Suicide Plan Description No Plan Tobacco & Substance use: Smoking Status Never smoker alcohol intake never Substance Use Type does not use Meds Home Medications and Allergies Home Medications Medication Instructions Recorded Confirmed Type prenat.vits,maria e,[id number] 1 tab PO DAILY 05/15/19 10/03/19 History sertraline 50 mg tablet 50 mg PO DAILY 05/15/19 10/03/19 History levothyroxine 100 mcg capsule 100 mcg PO DAILY #30 cap 07/17/19 10/03/19 Rx ibuprofen 600 mg PO Q6H PRN #30 tab 09/26/19 10/03/19 Rx oxycodone 5 mg PO Q8H PRN #20 tab 09/26/19 10/03/19 Rx labetalol 300 mg PO BID 10/03/19 10/03/19 History Allergies Allergy/AdvReac Type Severity Reaction Status Date / Time No Known Drug Allergies Allergy Verified 05/15/19 10:26 Review of Systems Constitutional Constitutional: Reports as per HPI Eyes Eyes: Reports as per HPI Cardiovascular Cardiovascular: Reports system reviewed and no additional complaints, except as documented Respiratory Respiratory: Reports system reviewed and no additional complaints, except as documented Gastrointestinal Gastrointestinal: Reports system reviewed and no additional complaints, except as documented Genitourinary Genitourinary: Reports system reviewed and no additional complaints, except as documented Musculoskeletal Musculoskeletal: Reports as per HPI Neurologic Neurologic: Reports as per HPI Psychiatric Psychiatric: Reports as per HPI Exam Vital Signs (past 8 hours): - 10/03/19 01:44 10/03/19 01:52 10/03/19 02:00 Temperature 98.2 F Pulse Rate 74 70 64 Respiratory Rate 16 Blood Pressure 188/92 H 188/92 H Pulse Oximetry 98 98 97 10/03/19 02:01 10/03/19 02:30 10/03/19 02:31 Temperature Pulse Rate 63 65 63 Respiratory Rate Blood Pressure 193/89 H 191/89 H Pulse Oximetry 98 97 97 10/03/19 03:00 10/03/19 03:01 10/03/19 03:21 Temperature Pulse Rate 65 61 67 Respiratory Rate Blood Pressure 204/93 H Pulse Oximetry 97 98 100 10/03/19 03:30 10/03/19 03:33 10/03/19 03:40 Temperature Pulse Rate 62 68 83 Respiratory Rate Blood Pressure 223/116 H Pulse Oximetry 98 99 98 10/03/19 03:50 10/03/19 04:00 10/03/19 04:01 Temperature Pulse Rate 62 62 62 Respiratory Rate Blood Pressure 215/118 H Pulse Oximetry 98 98 98 10/03/19 04:10 10/03/19 04:12 10/03/19 04:20 Temperature Pulse Rate 67 83 69 Respiratory Rate 18 Blood Pressure 215/118 H Pulse Oximetry 98 99 10/03/19 04:27 10/03/19 04:30 10/03/19 04:31 Temperature Pulse Rate 68 67 65 Respiratory Rate 19 20 19 Blood Pressure 217/111 H 211/98 H Pulse Oximetry 98 99 98 10/03/19 04:41 10/03/19 04:50 10/03/19 05:00 Temperature Pulse Rate 63 65 63 Respiratory Rate 19 18 22 Blood Pressure 201/105 H 205/104 H Pulse Oximetry 98 98 98 10/03/19 05:01 10/03/19 05:10 10/03/19 05:15 Temperature Pulse Rate 74 66 63 Respiratory Rate 17 19 Blood Pressure 211/102 H 211/102 H Pulse Oximetry 98 98 10/03/19 05:16 10/03/19 05:21 10/03/19 05:31 Temperature Pulse Rate 63 66 70 Respiratory Rate 17 20 Blood Pressure 211/102 H 209/105 H 211/98 H Pulse Oximetry 98 98 10/03/19 05:52 10/03/19 06:29 10/03/19 08:05 Temperature 97.2 F L 97.4 F L Pulse Rate 84 65 Respiratory Rate 16 17 Blood Pressure 163/78 H 163/78 H 182/92 H Pulse Oximetry 99 98 10/03/19 08:06 Temperature 97.4 F L Pulse Rate 63 Respiratory Rate 17 Blood Pressure 160/96 H Pulse Oximetry 98 Oxygen Delivery Method Room Air Oxygen Flow Rate 0 Const General: cooperative, healthy appearing, comfortable and other (sitting in bed, tired but smiling. ) Nutritional Appearance: obese Orientation: alert, awake and oriented x3 Eyes General: appearance normal, both eyes and all related structures Resp Effort & Inspection: normal respiratory effort Auscultation: clear to auscultation bilaterally Cardio Rate: regular rate Rhythm: regular rhythm GI Inspection: incision (clean/dry/intact) and large pannus Palpation: soft and No tender Neuro Cranial Nerves: CN's II-XI intact bilaterally DTR's: Rt Patellar: 2+ and Lt Patellar: 2+ Extrem General: no pedal edema Objective Labs Result Diagrams: 10/03/19 01:54 10/03/19 01:54 Labs: Laboratory Results - last 24 hr 10/03/19 10/03/19 10/03/19 01:54 01:54 01:54 WBC 9.9 RBC 4.27 Hgb 11.6 L Hct 35.3 L MCV 82.7 MCH 27.1 MCHC 32.7 RDW 14.6 Plt Count 288 Neut % (Auto) 67.3 Lymph % (Auto) 25.8 [place] % (Auto) 4.7 Eos % (Auto) 1.7 L Baso % (Auto) 0.5 Neut # (Auto) 6700 Lymph # (Auto) 2600 [place] # (Auto) 500 Eos # (Auto) 200 Baso # (Auto) 0 PT 13.0 H INR 1.1 APTT 30 D Sodium 138 Potassium 3.6 Chloride 108 H Carbon Dioxide 23 BUN 19 H Creatinine 0.96 Estimated GFR > 60.0 BUN/Creatinine Ratio 19.8 Glucose 97 Calcium 8.7 Total Bilirubin 0.4 AST 22 ALT 29 Alkaline Phosphatase 100 Total Creatine Kinase 149 H CK-MB (CK-2) 1.01 CK-MB (CK-2) Rel Index 0.7 L Troponin I < 0.012 Total Protein 6.5 Albumin 3.5 Globulin 3.0 Albumin/Globulin Ratio 1.2 Lipase 84 Urine Color Urine Appearance Urine pH Ur Specific [place] Urine Protein Urine Glucose (UA) Urine Ketones Urine Occult Blood Urine Nitrate Urine Bilirubin Urine Urobilinogen Ur Leukocyte Esterase Urine RBC Urine WBC Urine Bacteria Ur Culture Indicated? COVID-19 PCR 10/03/19 10/03/19 03:05 04:20 WBC RBC Hgb Hct MCV MCH MCHC RDW Plt Count Neut % (Auto) Lymph % (Auto) [place] % (Auto) Eos % (Auto) Baso % (Auto) Neut # (Auto) Lymph # (Auto) [place] # (Auto) Eos # (Auto) Baso # (Auto) PT INR APTT Sodium Potassium Chloride Carbon Dioxide BUN Creatinine Estimated GFR BUN/Creatinine Ratio Glucose Calcium Total Bilirubin AST ALT Alkaline Phosphatase Total Creatine Kinase CK-MB (CK-2) CK-MB (CK-2) Rel Index Troponin I Total Protein Albumin Globulin Albumin/Globulin Ratio Lipase Urine Color Yellow Urine Appearance Clear Urine pH 6.5 Ur Specific [place] 1.015 Urine Protein Trace H Urine Glucose (UA) Negative Urine Ketones Negative Urine Occult Blood 3+ H Urine Nitrate Negative Urine Bilirubin Negative Urine Urobilinogen 0.2 Ur Leukocyte Esterase Negative Urine RBC 1-5/hpf Urine WBC None seen Urine Bacteria None seen Ur Culture Indicated? Cult not indicated COVID-19 PCR Negative Assessment & Plan Assessment and plan (1) Hypertensive urgency: Status: Acute Assessment & Plan narrative: This patient is admitted with hypertensive urgency, and has a long history of severe hypertension prior to this , with severely elevated and difficult to control blood pressures even as late as the mid second trimester. Her PIH labs have normalized since admission, her WOOD is improving with her blood pressure control, she reported to the call provider that she had missed her dose of labetalol prior to admission, and she does not have signs of a preeclamptic process such as extremity or facial edema or hyperreflexia. Given her history, she appears to have an exacerbation of her chronic hypertension. She will be admitted for home anithypertensives with the addition of 30mg ER nifedipine BID, with titration of medications as above. - 300mg PO labetalol BID, 30mg ER nifedipine BID, to titrate up as needed - q1-2hr BPs - regular diet, PO hydration strongly encouraged - 600mg motrin q6 PRN, 650mg tylenol q6 PRN COVID-19 COVID-19 status: Negative Result date/Date tested (Pos, Neg/Pending): 10/03/19 Time Spent With Patient Time with patient: Greater than 35 minutes Quality VTE Deep Vein Thrombosis/Pulmonary Embolism Present on Admission: No
[2019-10-03] MEDS: LABETALOL 100 MG TABLET 300 MG PO ×2 (09:33→21:36)
[2019-10-03] MEDS: IBUPROFEN 600 MG TABLET PO ×2 (10:43→21:36)
[2019-10-03] MEDS: METOCLOPRAMIDE 10 MG/2 ML INJ IV (11:15)
[2019-10-03] MEDS: ACETAMINOPHEN 325 MG TABLET 975 MG PO (11:18)
[2019-10-03] MEDS: LEVOTHYROXINE 100 MCG TABLET PO (13:49)
[2019-10-03] MEDS: SERTRALINE 50 MG TABLET PO (13:49)
--- NOTE | 2019-10-03 15:06 | CM.DANOTE ---
Discharge Planning/Care Management DCP: assessment: case received, EMR reviewed. Discussed case in Team Rounds. Pt is a 34 year old female: 8 days : who admitted to are of Dr. Viveros. Payer: Claudia Decker and [employer] Viveros is working with pt to get her BP stabilized and then she is expected to return home to her and children. Pt did have problems with high BP during her , per RN coordinator Erin and was closely monitored by Dr. Viveros. Will check in tomorrow and follow prn for any d/c needs that might arise. CM Discharge Assessment Start: 10/03/19 15:05 Freq: Status: Active Protocol: Document 10/03/19 15:05 ITV (Rec: 10/03/19 15:06 ITV [id number]) Discharge Planning Assessment Advance Directives? No History Provided By Medical Record Prior Living Arrangements House Household Members spouse,children Independent with ADL's Yes Is patient alert and oriented? Yes Review Status In Process
[2019-10-03] MEDS: ACETAMINOPHEN 325 MG TABLET 650 MG PO (16:10)
[2019-10-03] MEDS: NIFEdipine 10 MG CAPSULE PO (16:56)
--- NOTE | 2019-10-03 17:48 | P.PN_ITS ---
Subjective Subjective Date Patient Seen: 10/03/19 Time Patient Seen: 18:00 Interval history: Patient reports improvement in her WOOD with improvement in her BPs. Still has photosensitive frontal headache, no visual changes, no other complaints. Patient admits to minimal PO intake since admission, discussed PO hydration, discussed plan of care. Discussed currently using medications that are safe with . Exam Vital Signs (past 8 hours): - 10/03/19 10:12 10/03/19 11:00 10/03/19 14:00 Temperature 98.2 F Pulse Rate 88 75 84 Respiratory Rate 18 Blood Pressure 153/90 H 157/99 H 144/82 H Pulse Oximetry 99 10/03/19 16:04 10/03/19 17:34 Temperature 98.0 F Pulse Rate 74 110 H Respiratory Rate 18 Blood Pressure 181/98 H 149/75 H Pulse Oximetry 98 Oxygen Delivery Method Room Air Oxygen Flow Rate 0 Const General: cooperative, healthy appearing and comfortable Other: sitting up in chair Objective Labs Result Diagrams: 10/03/19 01:54 10/03/19 01:54 Labs: Laboratory Results - last 24 hr 10/03/19 10/03/19 10/03/19 01:54 01:54 01:54 WBC 9.9 RBC 4.27 Hgb 11.6 L Hct 35.3 L MCV 82.7 MCH 27.1 MCHC 32.7 RDW 14.6 Plt Count 288 Neut % (Auto) 67.3 Lymph % (Auto) 25.8 [place] % (Auto) 4.7 Eos % (Auto) 1.7 L Baso % (Auto) 0.5 Neut # (Auto) 6700 Lymph # (Auto) 2600 [place] # (Auto) 500 Eos # (Auto) 200 Baso # (Auto) 0 PT 13.0 H INR 1.1 APTT 30 D Sodium 138 Potassium 3.6 Chloride 108 H Carbon Dioxide 23 BUN 19 H Creatinine 0.96 Estimated GFR > 60.0 BUN/Creatinine Ratio 19.8 Glucose 97 Calcium 8.7 Total Bilirubin 0.4 AST 22 ALT 29 Alkaline Phosphatase 100 Total Creatine Kinase 149 H CK-MB (CK-2) 1.01 CK-MB (CK-2) Rel Index 0.7 L Troponin I < 0.012 Total Protein 6.5 Albumin 3.5 Globulin 3.0 Albumin/Globulin Ratio 1.2 Lipase 84 Urine Color Urine Appearance Urine pH Ur Specific [place] Urine Protein Urine Glucose (UA) Urine Ketones Urine Occult Blood Urine Nitrate Urine Bilirubin Urine Urobilinogen Ur Leukocyte Esterase Urine RBC Urine WBC Urine Bacteria Ur Culture Indicated? COVID-19 PCR 10/03/19 10/03/19 03:05 04:20 WBC RBC Hgb Hct MCV MCH MCHC RDW Plt Count Neut % (Auto) Lymph % (Auto) [place] % (Auto) Eos % (Auto) Baso % (Auto) Neut # (Auto) Lymph # (Auto) [place] # (Auto) Eos # (Auto) Baso # (Auto) PT INR APTT Sodium Potassium Chloride Carbon Dioxide BUN Creatinine Estimated GFR BUN/Creatinine Ratio Glucose Calcium Total Bilirubin AST ALT Alkaline Phosphatase Total Creatine Kinase CK-MB (CK-2) CK-MB (CK-2) Rel Index Troponin I Total Protein Albumin Globulin Albumin/Globulin Ratio Lipase Urine Color Yellow Urine Appearance Clear Urine pH 6.5 Ur Specific [place] 1.015 Urine Protein Trace H Urine Glucose (UA) Negative Urine Ketones Negative Urine Occult Blood 3+ H Urine Nitrate Negative Urine Bilirubin Negative Urine Urobilinogen 0.2 Ur Leukocyte Esterase Negative Urine RBC 1-5/hpf Urine WBC None seen Urine Bacteria None seen Ur Culture Indicated? Cult not indicated COVID-19 PCR Negative Assessment & Plan Assessment and plan (1) Hypertensive urgency: Status: Acute Assessment & Plan narrative: Overall blood pressure control improving on current regimen. - 300mg labetalol BID PO, transition in AM to 60mg Nifedipine ER BID PO - Repeat PIH labs in AM - motrin, tylenol PRN - encouraged PO intake, PO hydration Quality VTE Deep Vein Thrombosis/Pulmonary Embolism Present on Admission: No
--- NOTE | 2019-10-03 19:45 | PC.NURSE ---
call placed to Dr. montes regarding increase in b/p 45 minutes post b/p med administration. Per verbal telephone orders; recheck b/p in 30 minutes and she will check computer [facility] and call up to nursing staff for further directions/orders if needed. Patient reports she can feel her blood pressure is elevated.
[2019-10-04] VITALS (15 sets, daily range): BP systolic 113–170; BP diastolic 67–99; PULSE 66–89; RESP 16–19; TEMP 36.5–36.9; O2SAT 97–98
[2019-10-04] MEDS: LEVOTHYROXINE 100 MCG TABLET PO (05:47)
[2019-10-04] MEDS: NIFEdipine 30 MG TAB ER 60 MG PO (05:47)
[2019-10-04 06:20] LABS: Add Manual Diff / Slide Review NO; Basophils Absolute Auto 100 /uL (0-100); Basophils Percent Auto 0.9 % (0-2); Eosinophils Absolute Auto 200 /uL (0-450); Eosinophils Percent Auto 1.9 % (2-4); Hematocrit 38.3 % (36-46); Hemoglobin 12.5 g/dL (12.0-16.0); Lymphocytes Absolute Auto 2200 /uL (1100-4500); Lymphocytes Percent Auto 23.2 % (25-40); Mean Corpuscular HGB Conc 32.7 % (30-36); Mean Corpuscular Hemoglobin 26.7 PG (26-34); Mean Corpuscular Volume 81.6 fL (80-100); Monocytes Absolute Auto 400 /uL (0-900); Monocytes Percent Auto 4.3 % (3-14); Neutrophils Absolute Auto 6500 /uL (1500-7000); Neutrophils Percent Auto 69.7 % (50-75); Platelet Count 296 X10^3/uL (150-400); Red Cell Distribution Width 14.4 % (11.6-14.8); White Blood Cell Count 9.3 X10^3/uL (4.5-11.0)
[2019-10-04 06:29] LABS: Uric Acid 5.7 mg/dL (2.5-6.2)
[2019-10-04 06:31] LABS: Alanine Aminotransferase 25 IU/L (<35); Albumin 3.6 g/dL (3.5-5.0); Albumin Globulin Ratio 1.2 (1.0-2.8); Alkaline Phosphatase 104 U/L (38-126); Aspartate Aminotransferase 18 IU/L (14-36); BUN Creatinine Ratio 16.5 (6-22); Bilirubin Total 0.5 mg/dL (0.2-1.3); Blood Urea Nitrogen 14 mg/dL (7-17); Calcium 8.7 mg/dL (8.4-10.2); Carbon Dioxide 24 mmol/L (22-32); Chloride 107 mmol/L (98-107); Estimated Glomerular Filt Rate > 60.0 mL/min (>60); Globulin 3.1 g/dL (1.7-4.1); Glucose 97 mg/dL (70-100); HEMOLYSIS < 15 (0-50); Lactate Dehydrogenase 392 U/L (313-618); Potassium 3.8 mmol/L (3.4-5.1); Sodium 138 mmol/L (137-145); Total Protein 6.7 g/dL (6.3-8.2)
[2019-10-04] MEDS: LABETALOL 100 MG TABLET 300 MG PO (07:58)
[2019-10-04] MEDS: SERTRALINE 50 MG TABLET PO (07:58)
[2019-10-04] MEDS: IBUPROFEN 600 MG TABLET PO ×2 (08:01→14:08)
--- NOTE | 2019-10-04 09:32 | P.PN_ITS ---
Subjective Subjective Date Patient Seen: 10/04/19 Time Patient Seen: 09:08 Interval history: Patient feeling much improved this AM with improved blood pressure control on 60mg PO BID of Nifedipine, denies WOOD, visual changes, abdominal pain. LE swelling improved. Patient ambulating, tolerating PO, voiding with appropriate volumes. Exam Vital Signs (past 8 hours): - 10/04/19 02:00 10/04/19 04:00 10/04/19 06:00 Temperature 97.7 F Pulse Rate 71 75 66 Respiratory Rate 18 Blood Pressure 158/87 H 162/91 H 170/82 H Pulse Oximetry 97 10/04/19 07:58 10/04/19 08:00 Temperature 98.5 F Pulse Rate 71 71 Respiratory Rate 17 Blood Pressure 160/99 H 160/99 H Pulse Oximetry 98 Oxygen Delivery Method Room Air Oxygen Flow Rate 0 Const General: cooperative, healthy appearing and comfortable Orientation: alert, awake and oriented x3 Resp Effort & Inspection: normal respiratory effort Auscultation: clear to auscultation bilaterally Cardio Rate: regular rate Rhythm: regular rhythm GI Palpation: soft and No tender Other: incision c/d/i Neuro General: CN's II-XI intact bilaterally DTR's: Rt Patellar: 2+ and Lt Patellar: 2+ Extrem General: normal to inspection Objective Labs Result Diagrams: 10/04/19 06:01 10/04/19 06:01 Labs: Laboratory Results - last 24 hr 10/04/19 10/04/19 10/04/19 06:01 06:01 06:01 WBC 9.3 RBC 4.70 Hgb 12.5 Hct 38.3 MCV 81.6 MCH 26.7 MCHC 32.7 RDW 14.4 Plt Count 296 Neut % (Auto) 69.7 Lymph % (Auto) 23.2 L [place] % (Auto) 4.3 Eos % (Auto) 1.9 L Baso % (Auto) 0.9 Neut # (Auto) 6500 Lymph # (Auto) 2200 [place] # (Auto) 400 Eos # (Auto) 200 Baso # (Auto) 100 Sodium 138 Potassium 3.8 Chloride 107 Carbon Dioxide 24 BUN 14 Creatinine 0.85 Estimated GFR > 60.0 BUN/Creatinine Ratio 16.5 Glucose 97 Uric Acid 5.7 Calcium 8.7 Total Bilirubin 0.5 AST 18 ALT 25 Alkaline Phosphatase 104 Lactate Dehydrogenase 392 Total Protein 6.7 Albumin 3.6 Globulin 3.1 Albumin/Globulin Ratio 1.2 Assessment & Plan Assessment & Plan narrative: This patient is admitted for management of exacerbation of chronic hypertension, with an exam and labs not consistent with a induced hypertension episode. The patient is much improved on PO nifedipine, and will be monitored until early afternoon to ensure for enduring BP control. Patient desires discharge and we discussed precautions for return and home BP monitoring. Quality VTE Deep Vein Thrombosis/Pulmonary Embolism Present on Admission: No
--- NOTE | 2019-10-04 10:25 | PC.NURSE ---
Day Shift- At 1005. Asked by primary RN to give additional meds as ordered. labetalol 100mg and lasix 10mg po. At 1012 BP was 113/70 pulse 88. At 1017 BP 127/72, pulse 82. Primary RN Rigoberto and RN Linda leon aware. Medications held at this time until clarification from physician by primary RN.
[2019-10-04] MEDS: LABETALOL 100 MG TABLET PO (11:23)
--- NOTE | 2019-10-04 12:59 | PC.NURSE ---
PATIENT REPORTED HEADACHE THIS MONRING, GIVEN IBUPROFEN. DR. ROBBINS ROUNDED THIS MORNING AND DISCUSSED WITH DR. DE LA ROSA. ORDERED LABETALOL AND LASIX. BP RECHECKED, NATALIA IMPROVED. CALLED DR. ROBBINS TO CALIRIFY IF MEDS WERE TO BE GIVEN. SHE ASKED BP TO BE RECHECKED AT 11;15, BP WAS 140/67, HR 76. DR. ROBBINS NOTIFIED OF SAME. DR. ROBBINS ORDERED THE EXTRA DOSE OF LABETOLOL AND HOLD LASIX.
--- NOTE | 2019-10-04 13:21 | P.DS_ITS ---
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 The patient's blood pressure had been well controlled during her on 300mg labetalol BID, and she had been being monitored as an outpa tient with BP checks and PIH labs. She reports that she had a mild global WOOD on Monday that resolved after a small amount of caffeine, PO hydration, and a nap, but that she had otherwise felt well until late Monday evening, when she awoke with a severe headache, found her home BPs to be severely elevated, and presented to the ED. She was administered 20mg IV hydralazine and 30mg ER nifedipine, and admitted for monitoring when preeclampsia labs were normal. She denies visual changes, RUQ pain, increased swelling, focal neurologic symptoms, chest pain, SOB, palpitations, or any other complaints this AM, and reports that her headache is improving though still present, is behind her eyes, and is worsened by movement and especially by light. She reports that since delivery, she has been intermittently forgetting to take her PO labetalol dose. Discharge Providers Provider Date of admission: 10/03/19 05:36 Discharge Date: 10/04/19 Primary care physician: ARIELLE Granger Consults: 10/03/19 13:47 Consult to Hospitalist Service Routine Comment: Consulting Provider: Vaishnavi Howell Reason for consultation: hypertensive urgency Has provider been notified: Yes Discharge provider: Bree Viveros MD Summary Hospital Course Discharge Diagnosis: exacerbation of chronic hypertension. Hospital Course: This patient was admitted with hypertensive urgency in the period, in the setting of a long history of difficult to control hypertension even prior to her . She had been intermittently forgetting her home BP meds as she was home with a . PIH labs were negative, and the patient's symptoms and exam were not consistent with a -related process so much as an exacerbation of preexisting disease. Her blood pressures were brought under control with an increase in her labetalol dose and addition of PO nifedipine, and she was discharged with close clinic follow up. Status at Discharge Cognitive/behavioral status at discharge: oriented Functional status at discharge: independent ambulation Overall status at discharge: patient is progressing back to baseline Time Spent with Patient Time spent: Greater than 30 minutes Exam Vital Signs (past 8 hours): - 10/04/19 06:00 10/04/19 07:58 10/04/19 08:00 Temperature 98.5 F Pulse Rate 66 71 71 Respiratory Rate 17 Blood Pressure 170/82 H 160/99 H 160/99 H Pulse Oximetry 98 10/04/19 10:12 10/04/19 10:13 10/04/19 10:15 Temperature Pulse Rate 88 84 82 Respiratory Rate Blood Pressure 113/70 113/70 127/72 Pulse Oximetry 10/04/19 10:17 10/04/19 10:19 10/04/19 11:15 Temperature Pulse Rate 82 89 76 Respiratory Rate Blood Pressure 127/72 127/72 140/67 Pulse Oximetry 10/04/19 11:23 10/04/19 12:15 Temperature 98.1 F Pulse Rate 76 72 Respiratory Rate 19 Blood Pressure 140/67 144/73 H Pulse Oximetry 97 Oxygen Delivery Method Room Air Oxygen Flow Rate 0 Narrative Exam Narrative: See day of discharge progress note. Objective Labs Result Diagrams: 10/04/19 06:01 10/04/19 06:01 Labs: Laboratory Results - last 24 hr 10/04/19 10/04/19 10/04/19 06:01 06:01 06:01 WBC 9.3 RBC 4.70 Hgb 12.5 Hct 38.3 MCV 81.6 MCH 26.7 MCHC 32.7 RDW 14.4 Plt Count 296 Neut % (Auto) 69.7 Lymph % (Auto) 23.2 L [place] % (Auto) 4.3 Eos % (Auto) 1.9 L Baso % (Auto) 0.9 Neut # (Auto) 6500 Lymph # (Auto) 2200 [place] # (Auto) 400 Eos # (Auto) 200 Baso # (Auto) 100 Sodium 138 Potassium 3.8 Chloride 107 Carbon Dioxide 24 BUN 14 Creatinine 0.85 Estimated GFR > 60.0 BUN/Creatinine Ratio 16.5 Glucose 97 Uric Acid 5.7 Calcium 8.7 Total Bilirubin 0.5 AST 18 ALT 25 Alkaline Phosphatase 104 Lactate Dehydrogenase 392 Total Protein 6.7 Albumin 3.6 Globulin 3.1 Albumin/Globulin Ratio 1.2 Discharge Assessment & Plan Assessment and Plan Assessment: chronic hypertension Plan of Treatment: The patient's blood pressures were brought under control on 400mg PO labetalol BID, and 60mg XR nifedipine BID. She was discharged for home BP monitoring and close clinic monitoring, with plans for referral to cardiology for investigation of the underlying cause of her severe hypertension, pending [facility] approval. Discharge Plan Discharge Plan Patient Disposition: Home Discharge orders & Medications Prescriptions: New labetalol 300 mg tablet 300 mg PO BID Qty: 30 RF: 3 labetalol 100 mg tablet 100 mg PO BID Qty: 30 RF: 3 nifedipine 60 mg tablet extended release 60 mg PO BID Qty: 60 RF: 3 Continued prenat.vits,maria [id number] Tablet 1 tab PO DAILY RF: 0 sertraline [Zoloft] 50 mg tablet 50 mg PO DAILY RF: 0 levothyroxine 100 mcg capsule 100 mcg PO DAILY Qty: 30 RF: 3 oxycodone 5 mg tablet 5 mg PO Q8H PRN (Reason: pain) Qty: 20 RF: 0 ibuprofen 600 mg tablet 600 mg PO Q6H PRN (Reason: pain) Qty: 30 RF: 1 Discontinued labetalol 300 mg tablet 300 mg PO BID RF: 0 No Action (DME) [employer] Electric breast Pump and Supplies See Rx Instructions .ROUTE .MEDSUPPLY Qty: 1 RF: 0 nifedipine 30 mg tablet extended release 30 mg PO DAILY Qty: 60 RF: 1 Follow up/Referrals: Bree Viveros MD [Physician] - 1 Week (You have an appointment for next Monday at noon in office for Blood Pressure check.) Erica Redmond ARNP [Primary Care Provider] - Diet/Activity/Treatments Diet: Regular Activity: Light activity and avoid heavy lifting for another 5 weeks. Nothing in the vagina for 5 weeks. If you have increasing headaches, swelling, visual changes, chest pain, elevated blood pressures, or any other symptoms or concerns, call or come to the ED. Visit Report/Discharge Packet Instructions: Essential Hypertension, Nifedipine, Labetalol, How to Monitor Your Blood Pressure at Home Visit Report Forms: Patient Portal/API, Stroke Signs & Symptoms Discharge Data Primary Care Provider: Erica Redmond Attending Provider: Bree Viveros Admit Date/Time: 10/03/19 05:36 Discharges patient from system. Discharge Date/Time: 10/04/19 14:45 Quality VTE Deep Vein Thrombosis/Pulmonary Embolism Present on Admission: No
--- NOTE | 2019-10-04 14:06 | CM.DPC ---
DCP: continued. Dr. Viveros saw pt today and ok'd her for d/c to home. A check in now shows that she has left for home already.
--- NOTE | 2019-10-04 14:49 | PC.NURSE ---
Day [facility]- Discharge summary packet reviewed with pt. Pt aware of follow up appt. Aware of next medication dosing. Pt reports physician explained to gap the nefedipine and Labetalol dose by several hours. Has all her belongings. No further voiced concerns. Pt stable at discharge and is driving herself home. Pt left unit at 1445 in no distress via wheelchair with [employer] escort.
== END 2019-10-04 14:45 | disposition home or self-care (01) ==
LOC: ED 04:07 → AC 05:36
PROVIDERS: Admitting Provider Obstetrics & Gynecology; Emergency Provider Emergency Medicine; PCP Nurse Practitioner Family; Referring Provider Emergency Medicine; Visit Provider Obstetrics & Gynecology
DX: I16.0 Hypertensive urgency (principal); O10.93 Unspecified pre-existing hypertension complicating the puerperium; R51 Headache; E66.9 Obesity, unspecified; Z11.59 Encounter for screening for other viral diseases
CPT/HCPCS: 36415; 80053; 81001; 82550; 82553; 83615; 83690; 84484; 84550; 85025; 85610; 85730; 87635; 93005; 96374; 96375; 96376; 99284; G0378; J0360; J2405; J2765

== ENCOUNTER → 2020-02-25 15:55 | Outpatient (CLI) | payer OTHER, MEDICAID, SELFPAY ==
[2019-10-03 06:08] VITALS: BMI 42.3
[2020-02-25 17:09] LABS: Add Manual Diff / Slide Review NO; Basophils Absolute Auto 100 /uL (0-100); Basophils Percent Auto 0.5 % (0-2); Eosinophils Absolute Auto 200 /uL (0-450); Eosinophils Percent Auto 1.4 % (2-4); Hematocrit 36.5 % (36-46); Hemoglobin 12.3 g/dL (12.0-16.0); Lymphocytes Absolute Auto 2400 /uL (1100-4500); Lymphocytes Percent Auto 19.9 % (25-40); Mean Corpuscular HGB Conc 33.8 % (30-36); Mean Corpuscular Hemoglobin 28.4 PG (26-34); Monocytes Absolute Auto 600 /uL (0-900); Neutrophils Absolute Auto 8800 /uL (1500-7000); Neutrophils Percent Auto 73.2 % (50-75); Platelet Count 258 X10^3/uL (150-400); Red Blood Cell Count 4.34 X10^6/uL (4.0-5.2); Red Cell Distribution Width 12.8 % (11.6-14.8)
[2020-02-25 17:10] LABS: Hemoglobin A1C% w Est Avg Glu 5.6 % (4.0-6.0)
[2020-02-25 17:51] LABS: Thyroid Stimulating Hormone 2.36 uIU/mL (0.47-4.68)
[2020-02-25 18:07] LABS: Ferritin 39 ng/mL (6-137)
== END ==
PROVIDERS: PCP Family Medicine; Referring Provider Family Medicine; Visit Provider Family Medicine
DX: L65.9 Nonscarring hair loss, unspecified (principal); Z86.32 Personal history of gestational diabetes; E03.9 Hypothyroidism, unspecified
CPT/HCPCS: 36415; 82728; 83036; 84443; 85025